=== PATIENT | male | born 1960 | race Caucasian/White ===

== ENCOUNTER 2020-09-29 03:51 | Emergency (ER) | payer OTHER, SELFPAY ==
--- NOTE | ~2020-09-29 | CT_ITS ---
EXAMINATION: CT abdomen pelvis w con DATE: 09/29/2020 06:06 INDICATION: Abdominal pain TECHNIQUE: Computed tomography (CT) of the abdomen and pelvis was performed with 100 mL Omnipaque-350 intravenous contrast. Automated exposure control and iterative reconstruction technique were employe d. The dose-length product was 1272.32 mGy-cm. COMPARISON: None FINDINGS: Mild atelectasis in the bilateral lower lobes. Heart size is normal. No pericardial or pleural effusi on. There are 3 hepatic cysts the largest measuring 3.4 cm in the right hepatic lobe. Gallbladder, sp keven, pancreas, bilateral adrenal glands and kidneys are normal. Ventral hernia along the left anteri or pelvic wall which is superimposed over ventral diastases. Several loops of small bowel as well as a segment of colon extending to the hernia. No bowel obstruction. There is wall thickening along coup le loops of small bowel in the left abdomen cephalad to the orifice of the ventral hernia consistent with an enteritis which could be infectious or inflammatory in etiology. Normal appendix. Fluid diste nded bladder is otherwise unremarkable. Minimal ascites in the dependent aspect of the hernia sac. No abscess or free intraperitoneal gas. Small fat-containing left inguinal hernia. Intramuscular lipoma along the left abductor musculature. Mildly bilateral inguinal lymph nodes extending cephalad along the bilateral iliac chains and into the abdominal retroperitoneum predominantly along the right para- aortic chain. Chronic anterior wedging at T11 and T12. Moderate to severe lower lumbar spondylosis. IMPRESSION: 1. Wall thickening along a few loops of small bowel which could be infectious or inflammatory in etio logy. 2. Separate loops of nonobstructed small bowel and short segment of colon extend into a left pelvic v entral hernia. 3. Mild bilateral inguinal, pelvic and retroperitoneal lymphadenopathy which most likely reactive pot entially related to suspected osteomyelitis at the bilateral feet.. Differential would include less l ikely lymphoma or metastatic disease. Reviewed, dictated and finalized at location A. SPRAYER IMPRESSION: 1. Wall thickening along a few loops of small bowel which could be infectious o r inflammatory in etiology. 2. Separate loops of nonobstructed small bowel and short segment of colon exten d into a left pelvic ventral hernia. 3. Mild bilateral inguinal, pelvic and retroperitoneal lymphadenopathy which mo st likely reactive potentially related to suspected osteomyelitis at the bilate ral feet.. Differential would include less likely lymphoma or metastatic diseas e.
--- NOTE | ~2020-09-29 | XR_ITS ---
EXAMINATION: XR ankle LT min 3V DATE: 09/29/2020 10:08 INDICATION: Possible ankle fracture. TECHNIQUE: Anteroposterior, oblique, mortise, and lateral views of the left ankle were obtained. COMPARISON: Left foot radiographs dated 09/29/2020 FINDINGS: Again seen is an oblique linear lucency projecting across the metadiaphyseal region of the left fibul a on the lateral projection which remain suspicious for nondisplaced fracture. No other fractures mickey ntified. Ankle mortise remains congruent with mild osteoarthritis. Again seen is soft tissue gas proj ecting over the medial malleolus likely related to reported history of open wound to some overlying b andaging material evident. Destructive changes at several of the metatarsophalangeal joints as previo usly detailed. IMPRESSION: 1. Persistent linear lucency projecting across the distal metadiaphyseal region of the left fibula wh ich remain suspicious for nondisplaced fracture. 2. Destructive change at several of the metatarsophalangeal joints concerning for osteomyelitis at le ast at the second metatarsophalangeal joint. See separate left foot radiograph report for further det ail. Reviewed, dictated and finalized at location A. OR NETWORK ENGINEER IMPRESSION: 1. Persistent linear lucency projecting across the distal metadiaphyseal region of the left fibula which remain suspicious for nondisplaced fracture. 2. Destructive change at several of the metatarsophalangeal joints concerning f or osteomyelitis at least at the second metatarsophalangeal joint. See separate left foot radiograph report for further detail.
--- NOTE | ~2020-09-29 | XR_ITS ---
EXAMINATION: XR foot RT 2V DATE: 09/29/2020 04:45 INDICATION: Right foot pain, swelling and open draining wound. TECHNIQUE: Dorsoplantar and lateral views of the right foot were obtained. COMPARISON: None. FINDINGS: Joint centered osteolysis at the fourth metatarsophalangeal joint involving the base of the fourth pr oximal phalanx and head of the fourth metatarsal concerning for septic arthritis and osteomyelitis. T here is also some osteolysis at the base of the fifth proximal phalanx and head of the fifth metatars al but also with periosteal reaction which is fairly exuberant at the diaphysis of the fifth metatars al consistent with chronic osteomyelitis. More chronic appearing destructive change at the head of th e third metatarsal and base of the third proximal phalanx which could represent additional chronic os teomyelitis or prior osteotomies. No fracture. Mild polyarticular osteoarthritis throughout the right foot. Prominent soft tissue swelling over the dorsal and lateral aspects of the right forefoot with suggestion of some possible associated soft tissue gas likely related to reported draining open wound . IMPRESSION: 1. Osteomyelitis likely acute on chronic centered at the fourth and fifth metatarsophalangeal joints. Reviewed, dictated and finalized at location A. [employer] IMPRESSION: 1. Osteomyelitis likely acute on chronic centered at the fourth and fifth metat arsophalangeal joints.
--- NOTE | ~2020-09-29 | XR_ITS ---
EXAMINATION: XR chest 1V DATE: 09/29/2020 04:45 INDICATION: Sepsis TECHNIQUE: frontal view of the chest was obtained. COMPARISON: None FINDINGS: The lungs are clear with no focal airspace opacities, pulmonary edema, pleural effusion or pneumothor ax. The cardiomediastinal silhouette is normal. Moderate degenerative skeletal changes in the spine a nd at both shoulders. IMPRESSION: 1. No acute cardiopulmonary disease. Reviewed, dictated and finalized at location A. CTOR ADVANCED
--- NOTE | ~2020-09-29 | XR_ITS ---
EXAMINATION: XR foot LT 2V DATE: 09/29/2020 07:15 INDICATION: Left foot pain, swelling and sores TECHNIQUE: Dorsoplantar and lateral views of the left foot were obtained. COMPARISON: None. FINDINGS: Joint centered osteolysis centered at the second metatarsophalangeal joint and involving both the bas e of the second proximal phalanx and head of the second metatarsal consistent with septic arthritis a nd osteomyelitis. More chronic appearing destructive changes centered at the third and fourth metatar sophalangeal joints with smooth margins suggesting chronic osteomyelitis and/or osteotomies. Suggesti ve old healed fracture at the proximal diaphysis of the fourth metatarsal. Mild polyarticular osteoar thritis at the left ankle, mid and forefoot. Linear lucency projecting obliquely across the distal me tadiaphyseal region of the left fibula suspicious for recent fracture. Soft tissue gas in the region of the second and third metatarsophalangeal joints as well as overlying the medial malleolus. IMPRESSION: 1. Septic arthritis at the second metatarsophalangeal joint with osteomyelitis involving the head of the second metatarsal and base of the second proximal phalanx. 2. Focus of soft tissue gas centered about the second and third metatarsophalangeal joints and overly ing the medial malleolus likely related to reported history of multiple open draining wounds. 3. Suggestion of a nondisplaced relatively recent fracture along the distal metadiaphysis of the left fibula. Would recommend dedicated left ankle radiographs for further evaluation. Reviewed, dictated and finalized at location A. THROATER IMPRESSION: 1. Septic arthritis at the second metatarsophalangeal joint with osteomyelitis involving the head of the second metatarsal and base of the second proximal pha lanx. 2. Focus of soft tissue gas centered about the second and third metatarsophalan geal joints and overlying the medial malleolus likely related to reported histo ry of multiple open draining wounds. 3. Suggestion of a nondisplaced relatively recent fracture along the distal met adiaphysis of the left fibula. Would recommend dedicated left ankle radiographs for further evaluation.
[2020-09-29 03:55] VITALS: BP 143/74; PULSE 109; RESP 20; TEMP 36.9; O2SAT 98
--- NOTE | 2020-09-29 04:24 | ECG_ITS ---
Measurements Intervals Herman Rate: 103 P: 77 IA: 165 QRS: 0 QRSD: 97 T: 117 QT: 327 QTc: 428 Interpretive Statements SINUS TACHYCARDIA POSSIBLE LEFT ATRIAL ENLARGEMENT DELAYED PRECORDIAL R/S TRANSITION VOLTAGE CRITERIA FOR LVH BASELINE WANDER- I, II, AVR, AVL,A VF BORDERLINE ECG Electronically Signed On 09-29-2020 8:56:41 [employer] MECH[employer] by Conner Lopez D.O.
--- NOTE | 2020-09-29 04:28 | ED.GENADULT ---
HPI - General Adult General Chief complaint: Extremity Injury, Lower <Colton Head MD - Last Filed: 09/29/20 07:47> Stated complaint: bilateral lower extrem pain and swelling <Colton Head MD - Last Filed: 09/29/20 07:47> Time Seen by Provider: 09/29/20 04:16 <Colton Head MD - Last Filed: 09/29/20 07:47> History of Present Illness HPI narrative: Patient is a 60-year-old gentleman who presents the emergency department with chief complaint of bilateral leg pain. Patient reports that he has had back pain and leg pain for several years and his had decreased mobility to the point that he has been sitting in a chair. The patient states has not seen a doctor in about a year and is really unsure if he has any other medical problems. Patient has noticed that he had had a previous hernia surgery and noticed that there has been an area that started draining in his left lower quadrant and was tender. Patient reports that he also has developed ulcerations on bilateral feet and has significant swelling of his feet the patient noticed that there is multiple ulcerations of the been draining purulent material <Colton Head MD - Last Filed: 09/29/20 07:47> Related Data Home medications: Home Medications Medication Instructions Recorded Confirmed No Home Medications 09/29/20 09/29/20 <Colton Head MD - Last Filed: 09/29/20 07:47> Allergies/adverse reactions: Allergies Allergy/AdvReac Type Severity Reaction Status Date / Time No Known Allergies Allergy Verified 09/29/20 07:29 <Colton Head MD - Last Filed: 09/29/20 07:47> Review of Systems Review of Systems: Narrative: A 10 system review of systems was completed on the patient and is negative except for what is stated in the HPI. Nursing and ancillary documentation was reviewed. <Colton Head MD - Last Filed: 09/29/20 07:47> PMFSH Comments Patient reports past medical history significant for hernia repair in the left lower quadrant Social history the patient lives with his and has been immobilized for some time <Colton Head MD - Last Filed: 09/29/20 07:47> Exam Narrative: Exam Narrative: GENERAL: Well-appearing, well-nourished, and in no acute distress. HEAD: Normocephalic, atraumatic. EYES: PERRLA and EOMI. ENT: Nares clear, no rhinorrhea or epistaxis. Mucous membranes moist. NECK: Supple. CHEST: Clear to auscultation. No respiratory distress. HEART: Regular rate and rhythm. No murmur heard. Normal peripheral pulses. ABDOMEN: Soft, there is tenderness to palpation throughout the abdomen there is a ulceration that is draining brown material in the left lower quadrant as well as a soft tissue swelling in the left lower quadrant., nondistended, normal active bowel sounds. EXTREMITIES: Normal range of motion. There is edema to bilateral lower extremities there is erythema below the knee there are multiple ulcerations that are draining purulent material. SKIN: Warm, dry, no rash. NEURO: No focal deficits. Alert and oriented x3. PSYCH: Normal mood and affect. <Colton Head MD - Last Filed: 09/29/20 07:47> Course Course Emergency Course: The patient has been fluid resuscitated with normal saline patient was started on empiric antibiotic coverage with vancomycin and Zosy plain film x-rays of the bilateral feet are concerning for osteomyelitis. The patient has a white blood cell count of 30,000 lactate was only 2.[address] scan of the abdomen pelvis shows evidence of a large ventral hernia that did contain several loops of small bowel there is no evidence of small bowel obstruction in the left pelvis area there is an area of inflammation in the bowel there is no free fluid or pneumoperitoneum <Colton Head MD - Last Filed: 09/29/20 07:47> Vital Signs Vital signs: Vital Signs Temperature 36.
[2020-09-29] MEDS: SODIUM CHLORIDE 0.9% IV 3,300 ML/1,000 ML BAG 999 ML IV CONT ×2 (04:59→09:18)
[2020-09-29 05:16] LABS: Hematocrit 38.2 % (42.0-52.0); Hemoglobin 12.6 g/dL (14.0-18.0); Mean Corpuscular Volume 84.9 fl (80-100); Mean Platelet Volume 10.6 fl (7.4-10.4); Platelet Count Result 491 k/mm3 (150-375); Red Cell Distribution Width 16.6 % (11.5-14.5); White Blood Count 30.3 K/mm3 (4.5-10.0)
[2020-09-29 05:28] LABS: INR 1.2; Partial Thromboplastin Time 34.2 SECONDS (22.3-36.8); Prothrombin Time 15.6 Seconds (11.1-14.7)
[2020-09-29 05:41] LABS: Troponin I < 0.012 ng/mL (0.000-0.034)
[2020-09-29 05:45] LABS: Band Neutrophils Percent 16 % (0-6); Lymphocytes Absolute Manual 1.81 K/mm3 (1.1-4.5); Monocytes Percent Manual 1 % (3-9); Neutrophils Absolute Manual 28.17 K/mm3 (1.3-6.7); Neutrophils Percent Manual 77 % (46-73); Platelet Estimate Adequate (Adequate); Target Cells 1+ (NORMAL); Total Cells Counted 100
[2020-09-29 05:53] LABS: Alanine Aminotransferase 36 U/L (4-50); Albumin Level 3.1 g/dL (3.5-5.1); Alkaline Phosphatase 262 U/L (38-126); Anion Gap 20 mmol/L (8-16); Aspartate Amino Transferase 49 U/L (17-59); Bilirubin,Total 0.9 mg/dL (0.2-1.3); Blood Urea Nitrogen 25 mg/dL (9-20); Calcium 9.2 mg/dL (8.4-10.2); Carbon Dioxide 19 mmol/L (22-30); Chloride 88 mmol/L (98-107); Estimated CRCL calculation 114 ml/min; Estimated Glomerular Filt Rate > 60; Glucose 447 mg/dL (75-110); Potassium 3.3 mmol/L (3.4-5.0); Sodium 127 mmol/L (137-145)
[2020-09-29 06:18] LABS: CRP > 45.0 mg/dL (<1.0)
[2020-09-29] MEDS: SODIUM CHLORIDE 0.9% IV 1,000 ML 999 ML IV CONT ×2 (06:35→07:28)
[2020-09-29 07:27] VITALS: BP 144/66; PULSE 105; RESP 24; O2SAT 98
[2020-09-29 07:44] LABS: Add Urine Microscopic? YES; Appearance Urine Clear (Clear); Bacteria Urine Trace /hpf; Bilirubin Urine Negative (Negative); Blood Urine 2+ (Negative); Color Urine Yellow (Yellow); Glucose Urine UA 3+ mg/dL (Negative); Hyaline Casts Urine 15-19 /lpf; Ketones Urine 1+ mg/dL (Negative); Leukocyte Esterase Ur Negative LEU/UL (Negative); Mucus Urine Rare /lpf; Nitrate Urine Negative (Negative); Protein Urine 1+ mg/dL (Negative); Specific Grav Ur 1.029 (1.001-1.035); Squamous Epithelial Cell Urine Rare /hpf (Few)
[2020-09-29] MEDS: INSULIN HUMAN REGULAR (*BKC) 100 UNITS/ML 7 UNITS SUB-Q (08:00)
[2020-09-29 08:21] LABS: Alveolar/Arterial O2 Gradient 34.3 mmHg; Base Excess ABG -8.7 mEq/l (+/-2.0); Carboxyhemoglobin 0.7 % THb (0-2.0); Fractional Inspired Oxygen 21 %; HCO3 ABG 14.6 mEq/l (22.0-26.0); Methemoglobin ABG 0.1 %THb (0-1.5); Oxygen Content ABG 16.1 %vol (16.0-22.0); Oxygen Saturation ABG 96.6 % (95.0-100.0); Oxyhemoglobin 95.8 % THb (90.0-100.0); PCO2 ABG 24.8 mmHg (35.0-45.0); PO2 ABG 85.7 mmHg (80.0-100.0); PO2 FiO2 Ratio Arterial Blood 4.08 %; Reduced Hemoglobin 3.4 %THb (0-5.0); Total Hemoglobin 11.9 g/dL (12.0-18.0); pH ABG 7.389 (7.350-7.450)
[2020-09-29 08:22] LABS: Device ROOM AIR; Modified Allen's Test Pass; Site Drawn LEFT RADIAL
[2020-09-29 08:47] LABS: Beta-Hydroxybutyrate/Acetoacetate 6.44 mmol/L (0.02-0.27)
[2020-09-29 08:49] LABS: Glucose Point of Care 386 (65-105)
[2020-09-29 08:54] VITALS: BP 139/73; PULSE 98; RESP 22; O2SAT 98
--- NOTE | 2020-09-29 09:07 | PC.NURSE ---
called Dawna crisostomo, added on Glu, Phos, and Mg 0914
[2020-09-29] MEDS: POTASSIUM CHLORIDE 20 MEQ PACKET (FOR LIQUID) 40 MEQ PO (09:18)
[2020-09-29 09:20] LABS: Magnesium 1.9 mg/dL (1.6-2.3); Phosphorus 4.2 mg/dL (2.5-4.5)
[2020-09-29 09:34] LABS: Erythrocyte Sedimentation Rate 21 mm/hr (0-20)
[2020-09-29 09:38] VITALS: BP 140/68; PULSE 101; RESP 17; O2SAT 100
[2020-09-29 09:58] LABS: Anion Gap 16 mmol/L (8-16); Blood Urea Nitrogen 21 mg/dL (9-20); Calcium 8.5 mg/dL (8.4-10.2); Carbon Dioxide 22 mmol/L (22-30); Chloride 92 mmol/L (98-107); Estimated CRCL calculation 155 ml/min; Estimated Glomerular Filt Rate > 60; Glucose 392 mg/dL (75-110); Potassium 3.3 mmol/L (3.4-5.0); Sodium 130 mmol/L (137-145)
[2020-09-29 10:09] LABS: Glucose Point of Care 340 (65-105)
--- NOTE | 2020-09-29 10:13 | PC.NURSE ---
Called lab, triny, about new BMP and Glu. Removed orders (double ordered?).
[2020-09-29 10:49] VITALS: BP 135/76; PULSE 100; RESP 19; O2SAT 98
== END 2020-09-29 10:51 | disposition short-term general hospital (02) ==
PROVIDERS: Emergency Medicine; Emergency Provider Emergency Medicine; PCP Internal Medicine
DX: L03.116 Cellulitis of left lower limb (principal); L03.115 Cellulitis of right lower limb; R73.9 Hyperglycemia, unspecified; A41.9 Sepsis, unspecified organism; K43.9 Ventral hernia without obstruction or gangrene; R00.0 Tachycardia, unspecified; R94.31 Abnormal electrocardiogram [ECG] [EKG]; M00.9 Pyogenic arthritis, unspecified; R93.6 Abnormal findings on diagnostic imaging of limbs; M86.9 Osteomyelitis, unspecified
CPT/HCPCS: 36415; 36600; 71045; 73610; 73620; 74177; 80048; 80053; 81001; 82010; 82375; 82805; 82948; 83050; 83605; 83735; 84100; 84484; 85025; 85610; 85652; 85730; 86140; 87040; 87147; 87186; 93005; 96361; 96365; 96366; 96367; 99285; A9270; J1815; J2543; J3370; J3480; J7030; Q9967

== ENCOUNTER 2021-10-26 09:57 | Emergency (ER) | payer OTHER, SELFPAY ==
[2021-10-26] VITALS (15 sets, daily range): BP systolic 130–156; BP diastolic 67–92; PULSE 86–94; RESP 16–20; TEMP 36.6; O2SAT 95–98
--- NOTE | ~2021-10-26 | CT_ITS ---
EXAMINATION: CT abdomen pelvis wo con EXAM DATE: 10/26/2021 13:42 INDICATION: dm, ap, diarrhea, inc wbc . TECHNIQUE: Spiral CT of the abdomen and pelvis was performed without contrast. Axial, coronal and s agittal images of the abdomen and pelvis were reviewed. The dose-length product (DLP) for this exami [facility] was 1461.19 mGy-cm. The exposure was tailored according to patient size (auto mA exposure con trol), and iterative reconstruction (ASIR) was used as additional dose reduction technique. Compariso n is made to prior examination from 09/29/2020. FINDINGS: Generalized abdominal wall diastases, dehiscence with large superimposed ventral hernia con taining nonobstructed bowel.. There is a left liver lobe cyst measuring about 3 cm. Spleen, adrenal glands, pancreas are unremarkable. Gallbladder is unremarkable. No biliary obstruction. There is n o nephrolithiasis or hydronephrosis. Prostate within normal size limits. Small bilateral inguinal f at-containing hernias. The bladder is unremarkable. There is no retroperitoneal or pelvic lymphaden opathy. There is mild scattered arteriosclerotic disease. There is distal esophageal wall edema, could be esophagitis but cancer not excludable. The stomach is distended with fluid and gas. There are no findings to suggest appendicitis. No small bowel dilation . Small duodenal diverticulum. There is mild sigmoid colonic diverticulosis. There is no adjacent in flammatory change to suggest diverticulitis. There is expected amount of colonic stool. No free int raperitoneal gas. The heart is normal in size. There are no pericardial or pleural effusions. The lung bases are unremarkable. There are no osteoblastic or osteolytic lesions identified. Intramusc ular 8 cm lipoma in the left thigh upper abdominal. Adductors IMPRESSION: 1. No acute intra-abdominal findings. 2. Distal esophageal wall edema probably esophagitis. Cancer not excludable. Distended stomach. 3. Abdominal wall dehiscence, arch ventral hernia containing nonobstructed bowel. 4. Colonic, duodenal diverticulosis. Reviewed, dictated and finalized at location A. OUND SPECIALIST IMPRESSION: 1. No acute intra-abdominal findings. 2. Distal esophageal wall edema probably esophagitis. Cancer not excludable. D istended stomach. 3. Abdominal wall dehiscence, arch ventral hernia containing nonobstructed bow el. 4. Colonic, duodenal diverticulosis.
[2021-10-26 11:10] LABS: Basophils Percent Auto 0.2 % (0.2-1.2); Hematocrit 47.9 % (42.0-52.0); Immature Granulocyte Absolute 0.18 K/mm3 (0.00-0.031); Immature Granulocyte Percent A 0.9 % (0-0.5); Lymphocytes Absolute Auto 1.03 K/mm3 (0.9-3.2); Lymphocytes Percent Auto 4.9 % (18.3-44.2); Mean Corpuscular HGB Conc 33.4 g/dl (32-36); Mean Corpuscular Hemoglobin 28.7 pg (26-34); Mean Platelet Volume 11.4 fl (7.4-10.4); Monocytes Absolute Auto 0.8 K/mm3 (0.1-0.6); Monocytes Percent Auto 3.9 % (2.6-8.5); Neutrophils Absolute Auto 18.8 K/mm3 (1.3-6.7); Neutrophils Percent Auto 90.1 % (45.5-73.1); Platelet Count Result 291 k/mm3 (150-375); Red Blood Count 5.57 M/mm3 (4.6-6.20); Red Cell Distribution Width 14.1 % (11.5-14.5); White Blood Count 20.8 K/mm3 (4.5-10.0)
[2021-10-26 11:19] LABS: Lipase 26 U/L (23-300)
[2021-10-26] MEDS: LACTATED RINGERS 1,000 ML 999 ML IV CONT ×2 (11:32→13:15)
[2021-10-26] MEDS: ONDANSETRON INJ 4 MG/2 ML VIAL IV PUSH (11:32)
[2021-10-26] MEDS: PANTOPRAZOLE SODIUM IV 40 MG VIAL IV PUSH (11:32)
[2021-10-26 11:41] LABS: Troponin I 0.027 ng/mL (0.000-0.034)
[2021-10-26 12:38] LABS: Alanine Aminotransferase 37 U/L (4-50); Albumin Level 4.3 g/dL (3.5-5.1); Alkaline Phosphatase 93 U/L (38-126); Anion Gap 16 mmol/L (8-16); Aspartate Amino Transferase 51 U/L (17-59); Bilirubin,Total 1.2 mg/dL (0.2-1.3); Blood Urea Nitrogen 46 mg/dL (9-20); Calcium 9.1 mg/dL (8.4-10.2); Carbon Dioxide 29 mmol/L (22-30); Chloride 90 mmol/L (98-107); Estimated CRCL calculation 85 ml/min; Estimated Glomerular Filt Rate > 60; Glucose 356 mg/dL (65-110); Potassium 3.5 mmol/L (3.4-5.0); Sodium 135 mmol/L (137-145)
[2021-10-26 13:01] LABS: Add Urine Microscopic? YES; Appearance Urine Clear (Clear); Bilirubin Urine Negative (Negative); Blood Urine Negative (Negative); Color Urine Amber (Yellow); Glucose Urine UA 2+ mg/dL (Negative); Hyaline Casts Urine 15-19 /lpf; Ketones Urine Trace mg/dL (Negative); Leukocyte Esterase Ur Negative LEU/UL (Negative); Mucus Urine Few /lpf; Nitrate Urine Negative (Negative); Protein Urine 2+ mg/dL (Negative); Specific Grav Ur 1.023 (1.001-1.035); Squamous Epithelial Cell Urine Rare /hpf (Few); WBC Urine 0-3 /hpf
[2021-10-26] MEDS: INSULIN HUMAN REGULAR (*BKC) 100 UNITS/ML 10 UNITS IV PUSH (13:15)
[2021-10-26 13:38] LABS: Toxigenic C. Diff POSITIVE (NEGATIVE)
--- NOTE | 2021-10-26 14:29 | ED.NAVMDI ---
HPI - Nausea/Vomiting/Diarrhea General Chief complaint: Nausea/Vomiting/Diarrhea Stated complaint: Coughing up blood/nausea Time Seen by Provider: 10/26/21 10:16 Source: patient Mode of arrival: EMS Limitations: clinical condition History of Present Illness HPI Narrative: 61-year-old male Patient is brought in by EMS from his home where he was said to have been found naked in his living room in a hospital bed and was transported in that condition Patient states that he has been having abdominal discomfort and feeling bloated for weeks For the last 2 days he has had very minimal if any p.o. intake and has not been taking his insulin for that reason He also complains that he has vomited a few times in the last 1 may have had blood in it As well as having loose stools multiple times in the last 2 days He has a old ventral hernia repair which is failed and is concerned whether that is the cause of some of the symptoms Related Data Home Medications Medication Instructions Recorded Confirmed insulin aspar prot-insulin aspart 7 unit SUBCUT TID ml 11/29/20 12/02/20 100 unit/mL (70-30) subcutaneous pen lisinopril 10 mg tablet 10 mg PO DAILY 11/29/20 12/02/20 insulin glargine 100 unit/mL (3 30 unit SUBCUT QPM ml 12/02/20 12/02/20 mL) subcutaneous pen blood sugar diagnostic #10 ea 12/16/20 blood-glucose meter #1 ea 12/16/20 Allergies Allergy/AdvReac Type Severity Reaction Status Date / Time No Known Allergies Allergy Verified 12/02/20 13:42 Review of Systems Review of Systems: All systems reviewed & are unremarkable except as noted in HPI and below Constitutional: Constitutional: Reports no additional constitutional complaints, Denies chills, Reports fatigue, Denies fever(s), Denies headache(s) and Reports weakness Eyes: Eyes: Reports no additional eye complaints and Denies change in vision ENT: Denies headache(s) and Denies sore throat Cardiovascular: Cardiovascular: Denies chest pain and Denies dyspnea Respiratory: Respiratory: Denies cough and Denies dyspnea Gastrointestinal: Gastrointestinal: Reports abdominal pain, Reports bloating, Reports heartburn, Reports diarrhea, Reports nausea and Reports vomiting Genitourinary: Genitourinary: Denies dysuria, Denies urinary frequency and Denies urinary incontinence Musculoskeletal: Musculoskeletal: Reports myalgias, Denies deformity, Denies arthralgias, Denies joint swelling and Denies numbness Integumentary/Breasts: Skin/Breast: Denies rash and Denies wounds Neurologic: Denies headache(s), Denies focal weakness and Denies numbness Psychiatric: Psychiatric: Reports no additional psychiatric complaints Endocrine: Endocrine: Reports no additional endocrine complaints Hematologic/Lymphatic: Hematologic/Lymphatic: Reports no additional hematologic/lymphatic complaints Allergic/Immunologic: Allergic/Immunologic: Reports no additional allergic/immunologic complaints [facility] Social History Social History Smoking status: Former smoker Second hand tobacco smoke exposure: No Alcohol intake: never Substance use: never Agree to blood products: Yes Exam Const: General: cooperative, no acute distress and alert; No confusion Nutritional Appearance: obese Orientation/consciousness: patient oriented x3 (alert) HENMT: Head: normal to inspection, normocephalic and atraumatic Ears: external ears normal General nose exam: no epistaxis Mouth: Yes moist mucous membranes Eyes: Conjunctivae: conjunctivae normal EOM: EOMs intact bilaterally Neck: Neck: normal visual inspection, supple and no JVD Resp: Effort & Inspection: normal respiratory effort and not labored Auscultation: clear to auscultation bilaterally and other (BS =) Cardio: Rate: regular rate Rhythm: regular rhythm Heart sounds: no murmurs GI: GI Palp: Yes Soft to palpation, No Tenderness to palpation present (GI), No Guarding due to p
--- NOTE | 2021-11-11 18:20 | PC.NURSE ---
LATE ENTRY This note is being entered to document information to the patient's record. The following information was omitted on [10/26/21], by [eleonora lawson]. LR START 1132- END 1225 LrR START 1315- END 1409
== END 2021-10-26 16:06 | disposition left against medical advice (07) ==
PROVIDERS: Emergency Provider Emergency Medicine; PCP Physician Assistant
DX: R19.7 Diarrhea, unspecified (principal); E10.65 Type 1 diabetes mellitus with hyperglycemia; T38.3X6A Underdosing of insulin and oral hypoglycemic [antidiabetic] drugs, initial encounter; Z91.128 Patient's intentional underdosing of medication regimen for other reason; Z87.891 Personal history of nicotine dependence; K57.30 Diverticulosis of large intestine without perforation or abscess without bleeding; R93.3 Abnormal findings on diagnostic imaging of other parts of digestive tract; R93.5 Abnormal findings on diagnostic imaging of other abdominal regions, including retroperitoneum; K43.9 Ventral hernia without obstruction or gangrene
CPT/HCPCS: 36415; 74176; 80053; 81001; 83690; 84443; 84484; 85025; 87493; 96361; 96374; 96375; 99284; C9113; J1815; J2405; J7120

== ENCOUNTER 2023-06-05 10:35 | Outpatient (CLI) | payer OTHER, SELFPAY ==
[2023-06-05 17:52] LABS: Basophils Absolute Auto 0.1 K/mm3 (0.0-0.1); Eosinophils Absolute Auto 0.5 K/mm3 (0-0.3); Eosinophils Percent Auto 3.3 % (0-4.4); Hematocrit 48.8 % (42.0-52.0); Immature Granulocyte Absolute 0.06 K/mm3 (0.00-0.031); Immature Granulocyte Percent A 0.4 % (0-0.5); Lymphocytes Absolute Auto 1.89 K/mm3 (0.9-3.2); Lymphocytes Percent Auto 13.4 % (18.3-44.2); Mean Corpuscular HGB Conc 32.8 g/dl (32-36); Mean Corpuscular Hemoglobin 29.3 pg (26-34); Mean Corpuscular Volume 89.4 fl (80-100); Mean Platelet Volume 12.4 fl (7.4-10.4); Monocytes Absolute Auto 0.9 K/mm3 (0.1-0.6); Neutrophils Absolute Auto 10.8 K/mm3 (1.3-6.7); Neutrophils Percent Auto 75.9 % (45.5-73.1); Platelet Count Result 278 k/mm3 (150-375); Red Blood Count 5.46 M/mm3 (4.6-6.20); Red Cell Distribution Width 14.1 % (11.5-14.5); White Blood Count 14.2 K/mm3 (4.5-10.0)
[2023-06-05 19:42] LABS: Alanine Aminotransferase 16 U/L (6-50); Alkaline Phosphatase 83 U/L (38-126); Anion Gap 9 mmol/L (8-16); Aspartate Amino Transferase 25 U/L (17-59); Bilirubin,Total 0.5 mg/dL (0.2-1.3); Blood Urea Nitrogen 12 mg/dL (9-20); Carbon Dioxide 29 mmol/L (22-30); Chloride 97 mmol/L (98-107); Cholesterol 159 mg/dL (0-200); Estimated Glomerular Filt Rate > 60; Glucose 271 mg/dL (65-110); HDL Direct 34 mg/dL; Potassium 3.6 mmol/L (3.4-5.0); Sodium 135 mmol/L (137-145); Triglycerides 200 mg/dL (<150)
[2023-06-05 19:53] LABS: LDL Cholesterol Direct 63 mg/dL
[2023-06-05 20:13] LABS: Prostate Specific Antigen 0.1 ng/mL (< OR = 4.0)
[2023-06-05 20:23] LABS: Vitamin D 25 Hydroxy < 12.8 ng/mL
[2023-06-05 21:35] LABS: Hemoglobin A1C 11.4 % (<5.7)
== END 2023-06-05 10:36 | disposition home or self-care (01) ==
PROVIDERS: PCP Family Medicine; Visit Provider Family Medicine
DX: Z12.5 Encounter for screening for malignant neoplasm of prostate (principal); Z00.00 Encounter for general adult medical examination without abnormal findings; E11.9 Type 2 diabetes mellitus without complications; I10 Essential (primary) hypertension; E78.5 Hyperlipidemia, unspecified; E55.9 Vitamin D deficiency, unspecified; E53.8 Deficiency of other specified B group vitamins; Z79.899 Other long term (current) drug therapy
CPT/HCPCS: 36415; 80053; 80061; 82306; 82607; 83036; 84153; 84443; 85025; G0103

== ENCOUNTER 2024-07-04 09:59 | Inpatient (IN) | payer OTHER, SELFPAY ==
[2024-07-04] VITALS (8 sets, daily range): BP systolic 147–208; BP diastolic 84–105; PULSE 68–83; RESP 17–26; TEMP 36.2–36.7; O2SAT 92–96; BMI 33.2
--- NOTE | ~2024-07-04 | CT_ITS ---
EXAMINATION: CT abdomen pelvis w con DATE: 07/04/2024 11:49 INDICATION: Left lower quadrant hernia. TECHNIQUE: Computed tomography (CT) of the abdomen and pelvis was performed with 100 mL Omnipaque-350 intravenous contrast. Automated exposure control and iterative reconstruction technique were employe d. The dose-length product was 1454.67 mGy-cm. COMPARISON: None FINDINGS: There are incompletely visualized bilateral posterior layering pleural effusions with compressive ate lectasis in the bilateral lower lobes. Cardiomegaly. Atherosclerotic coronary artery calcification. N o pericardial effusion. A few scattered hepatic cysts the largest measuring 2.8 cm at the caudal righ t hepatic lobe. Decompressed gallbladder, spleen, pancreas, bilateral adrenal glands and kidneys are normal. Bladder is normal. Again seen is marked diastases of the rectus abdominis muscle from which arises a large left lower qu adrant ventral hernia containing multiple loops of small bowel. There are a couple additional small s atellite hernias arising at the anterior and posterior inferior margin of the larger hernia, the form er containing a portion of the wall of a loop of small bowel and the latter containing fat and a mini mal amount of fluid. No bowel obstruction. There is focal wall thickening at the cecum along with sev eral small lymph nodes in the immediately adjacent fat. There is a larger 2.2 cm spherical mass near the tip of the cecum. Findings are suspicious for a primary cecal colon cancer and associated metasta tic disease. There is mild more diffuse wall thickening in the distal sigmoid colon and rectum which is more suspicious for a mild distal proctocolitis. There is diffuse body wall edema as well as retroperitoneal edema in the pelvis. No abscess or free i ntraperitoneal gas or fluid. No no other pathologically enlarged abdominal or pelvic lymphadenopathy. Moderate thoracolumbar spondylosis. Small fat-containing left inguinal hernia. Again seen is a large lipoma measuring up to 9.7 cm axial length in the proximal left abductor compartment. IMPRESSION: 1. Chronic marked rectus abdominis diastases with large left lower quadrant ventral hernia containing nonobstructed loops of small bowel. 2. Focal wall thickening at the tip the cecum with 2.2 cm mass and a few smaller nodules in the immed iately adjacent fat which is suspicious for primary colon cancer and ileocolic lymph node metastatic disease. Would recommend attempted colonoscopy for further evaluation although this may prove challen ging given the anatomy of the colon. 3. More diffuse mild wall thickening at the rectum and distal sigmoid colon is more suspicious for a distal proctocolitis which could be infectious, inflammatory or less likely ischemic in etiology. 4. Incompletely visualized bilateral pleural effusions. 5. Cardiomegaly. 6. Small fat-containing left inguinal hernia. Reviewed, dictated and finalized at location A. IMPRESSION: 1. Chronic marked rectus abdominis diastases with large left lower quadrant saul tral hernia containing nonobstructed loops of small bowel. 2. Focal wall thickening at the tip the cecum with 2.2 cm mass and a few smalle r nodules in the immediately adjacent fat which is suspicious for primary colon cancer and ileocolic lymph node metastatic disease. Would recommend attempted colonoscopy for further evaluation although this may prove challenging given th e anatomy of the colon. 3. More diffuse mild wall thickening at the rectum and distal sigmoid colon is more suspicious for a distal proctocolitis which could be infectious, inflammat ory or less likely ischemic in etiology. 4. Incompletely visualized bilateral pleural effusions. 5. Cardiomegaly. 6. Small fat-containing left inguinal hernia.
--- NOTE | 2024-07-04 10:48 | ED_ITS ---
HPI - Skin/Abscess/Foreign Bdy General Chief complaint: Skin/Abscess/Foreign Body <Augusta Dumont PA-C - Last Filed: 07/04/24 14:15> Stated complaint: ulcers to bottom <Augusta Dumont PA-C - Last Filed: 07/04/24 14:15> Time Seen by Provider: 07/04/24 10:21 <Augusta Dumont PA-C - Last Filed: 07/04/24 14:15> History of Present Illness HPI narrative: 64-year-old male history of type 2 diabetes, left leg amputation, hypertension, dyslipidemia presents with his at bedside via EMS from home for ulcers his sacrum for a couple of weeks. The patient's assists with history and states the ulcers began draining yellow purulence today which is why they came to the ED. the patient is bed at home and stays in a hospital bed. He has a chronic right lower extremity contracture. the patient also has a chronic left lower quadrant ventral hernia which is tender to palpation. States he had some diarrhea few days ago but that has since resolved. LBM was yesterday with diarrhea. No diarrhea today. Denies nausea vomiting, fever, Obstipation. <Augusta Dumont PA-C - Last Filed: 07/04/24 14:15> Related Data Allergies/Adverse reactions: Allergies Allergy/AdvReac Type Severity Reaction Status Date / Time No Known Allergies Allergy Verified 06/05/23 09:27 <Augusta Dumont PA-C - Last Filed: 07/04/24 14:15> Review of Systems Review of Systems: All systems reviewed & are unremarkable except as noted in HPI and below <Augusta Dumont PA-C - Last Filed: 07/04/24 14:15> PMF Past Medical History Medical History: Medical History Chronic low back pain Diabetes Flexion contracture of right knee Hernia of abdominal wall Osteomyelitis (~08/2020) Type 2 diabetes mellitus without complications <Augusta Dumont PA-C - Last Filed: 07/04/24 14:15> Surgical History Surgical History: Surgical History History of left above knee amputation (~09/2020) due to osteomyelitis History of tonsillectomy (~1961) History of umbilical hernia repair (~2001) Status post amputation of right foot through metatarsal bone (~09/2020) <Augusta Dumont PA-C - Last Filed: 07/04/24 14:15> Social History Social History: Social History Smoking status: Never smoker Second hand tobacco smoke exposure: No Alcohol intake: never Substance use: never Do You Feel Safe in your Home?: Yes Lack of Transportation: No Lack of Food: Never True Current Housing: I Have Housing Concerned About Future Housing: No Difficulty Paying Gas/Electric Bills: No Difficulty Paying for Meds: No Currently Unemployed: No Education: High School Diploma/GED Difficulty w/ Childcare or Family Care: No Living arrangements: with family Occupation/Education: retired Gender identity (if verbalized by the patient): Male Spiritual care concerns: No Agree to blood products: Yes <Augusta Dumont PA-C - Last Filed: 07/04/24 14:15> Exam Narrative: GENERAL: no acute distress. Poor hygiene HEAD: Normocephalic, atraumatic. EYES: PERRLA and EOMI. ENT: Nares clear, no rhinorrhea or epistaxis. Mucous membranes moist. NECK: Supple. CHEST: Clear to auscultation. No respiratory distress. HEART: Regular rate and rhythm. No murmur heard. Normal peripheral pulses. ABDOMEN: normoactive bowel sounds. Abdomen soft with mild tenderness over the left lower quadrant ventral hernia. Hernia not easily reduced. No overlying skin changes EXTREMITIES: left proximal thigh amputation, right knee chronic contracture SKIN: several stage II ulcerations to the sacrum extending near the scrotum with surrounding blanching erythema and warmth that extends superiorly up the back. No crepitus, no necrosis. Yellow purulence noted on bandages NEURO: No focal deficits. Alert and oriented x3 <Augusta Dumont PA-C - Last Filed: 07/04/24 14:15> Course MARKETING OPERATIONS SPECIALIST/PA Physician Supervision I agree with midlevel documentation; I performed the medical decision making component of this evaluation. <Radha Jj MD - Last Filed: 07/04/24 18:48> Vital Signs Vital signs: Vital Signs Temperature 97.5 F L 07/04/24 10:00 Pulse Rate 79 07/04/24 10:00 Respiratory Rate 20 07/04/24 10:00 Pulse Oximetry 96 07/04/24 10:00 Oxygen Delivery Room Air 07/04/24 10:00 Temperature 97.1 F L 07/04/24 16:00 Pulse Rate 68 07/04/24 16:00 Respiratory Rate 20 07/04/24 16:00 Blood Pressure 181/100 H 07/04/24 16:00 Pulse Oximetry 96 07/04/24 16:00 Oxygen Delivery Room Air 07/04/24 10:00 <Augusta Dumont PA-C - Last Filed: 07/04/24 14:15> Vital Signs Temperature 97.5 F L 07/04/24 10:00 Pulse Rate 79 07/04/24 10:00 Respiratory Rate 20 07/04/24 10:00 Pulse Oximetry 96 07/04/24 10:00 Oxygen Delivery Room Air 07/04/24 10:00 Temperature 97.1 F L 07/04/24 16:00 Pulse Rate 68 07/04/24 16:00 Respiratory Rate 20 07/04/24 16:00 Blood Pressure 181/100 H 07/04/24 16:00 Pulse Oximetry 96 07/04/24 16:00 Oxygen Delivery Room Air 07/04/24 10:00 <Radha Jj MD - Last Filed: 07/04/24 18:48> MDM - Skin/Abscess/Foreign Bdy MDM Narrative Medical decision making narrative: 64-year-old male history of diabetes, hypertension, dyslipidemia presents to the emergency department via EMS for ulcerations to his back. See HPI for further history. Triage vitals. Exam is significant for the above. Will obtain lab work, inflammatory markers, lactic and blood cultures. Given incarcerated left ventral hernia, CT abdomen pelvis will be obtained as well. CBC with leukocytosis of 11.1. Hemoglobin is 10.3 which is decreased approximately 6 point since May 2023. Chemistries reveal mild hypokalemia of 3.3 and hypocalcemia of 7.7. Potassium orally repleted. CRP is elevated to 3.6 and ESR is that is 78. Lactic normal 1.5. Mag is normal. Blood cultures are pending. CT Abdomen pelvis revealed IMPRESSION: 1. Chronic marked rectus abdominis diastases with large left lower quadrant ventral hernia containing nonobstructed loops of small bowel. 2. Focal wall thickening at the tip the cecum with 2.2 cm mass and a few smaller nodules in the immediately adjacent fat which is suspicious for primary colon cancer and ileocolic lymph node metastatic disease. Would recommend attempted colonoscopy for further evaluation although this may prove challenging given the anatomy of the colon. 3. More diffuse mild wall thickening at the rectum and distal sigmoid colon is more suspicious for a distal proctocolitis which could be infectious, inflammatory or less likely ischemic in etiology. 4. Incompletely visualized bilateral pleural effusions. 5. Cardiomegaly. 6. Small fat-containing left inguinal hernia. rectal exam performed which shows no evidence of melena or hematochezia. Hemoccult is positive. Patient has no personal or family history of colon cancer to his knowledge. Family is requesting to stay in this hospital even though we are do not currently have Oncology. They understand that they will need to follow-up on an outpatient basis after discharge. I discussed the case with GI physician, Dr. Raymundo, who agrees to consult on admission with plans for a colonoscopy and biopsy. Discussed with the hospitalist, and Selam Quinones who agrees the plan for admission. Patient was started on vancomycin for cellulitis and infected ulcers. Admitted to the floor in stable condition. <Augusta Dumont PA-C - Last Filed: 07/04/24 14:15> Lab Data Result diagrams: 07/04/24 14:36 07/04/24 10:52 <Augusta Dumont PA-C - Last Filed: 07/04/24 14:15> Labs: Lab Results 07/04/24 Range/Units 10:52 WBC 11.1 H (4.5-10.0) K/mm3 RBC 4.11 L (4.6-6.20) M/mm3 Hgb 10.3 L D (14.0-18.0) g/dL Hct 32.6 L (42.0-52.0) % MCV 79.3 L (80-100) fl MCH 25.1 L (26-34) pg MCHC 31.6 L (32-36) g/dl RDW 18.6 H (11.5-14.5) % Plt Count 460 H D (150-375) k/mm3 MPV 11.4 H (7.4-10.4) fl Immature Gran % (Auto) 0.4 (0-0.5) % Neut % (Auto) 73.9 H (45.5-73.1) % Lymph % (Auto) 12.5 L (18.3-44.2) % [place] % (Auto) 7.7 (2.6-8.5) % Eos % (Auto) 4.1 (0-4.4) % Baso % (Auto) 1.4 H (0.2-1.2) % Lymph # (Auto) 1.39 (0.9-3.2) K/mm3 [place] # (Auto) 0.9 H (0.1-0.6) K/mm3 Eos # (Auto) 0.5 H (0-0.3) K/mm3 Baso # (Auto) 0.2 H (0.0-0.1) K/mm3 Abs Immat Gran (auto) 0.04 H (0.00-0.031) K/mm3 Absolute Neuts (auto) 8.2 H (1.3-6.7) K/mm3 Absolute Nucleated RBC 0.000 (0.0-0.012) K/mm3 Nucleated RBC % 0.0 (0.0-0.2) % ESR 78 H (0-20) mm/hr Sodium 137 (137-145) mmol/L Potassium 3.3 L (3.4-5.0) mmol/L Chloride 100 (98-107) mmol/L Carbon Dioxide 31 H (22-30) mmol/L Anion Gap 6 (4-12) mmol/L BUN 13 (9-20) mg/dL Creatinine 0.70 (0.7-1.3) mg/dL Estim Creat Clear Calc 105 ml/min Estimated GFR > 60 (59 - ) Glucose 125 H (65-110) mg/dL Lactic Acid 1.5 (0.7-2.0) mmol/L Calcium 7.7 L (8.4-10.2) mg/dL Magnesium 1.8 (1.6-2.3) mg/dL Total Bilirubin 0.5 (0.2-1.3) mg/dL AST 18 (17-59) U/L ALT 8 (6-50) U/L Alkaline Phosphatase 97 (38-126) U/L C-Reactive Protein 3.6 H (<1.0) mg/dL Total Protein 7.0 (6.3-8.2) g/dL Albumin 3.1 L (3.5-5.1) g/dL <Augusta Dumont PA-C - Last Filed: 07/04/24 14:15> Lab Results 07/04/24 Range/Units 10:52 WBC 11.1 H (4.5-10.0) K/mm3 RBC 4.11 L (4.6-6.20) M/mm3 Hgb 10.3 L D (14.0-18.0) g/dL Hct 32.6 L (42.0-52.0) % MCV 79.3 L (80-100) fl MCH 25.1 L (26-34) pg MCHC 31.6 L (32-36) g/dl RDW 18.6 H (11.5-14.5) % Plt Count 460 H D (150-375) k/mm3 MPV 11.4 H (7.4-10.4) fl Immature Gran % (Auto) 0.4 (0-0.5) % Neut % (Auto) 73.9 H (45.5-73.1) % Lymph % (Auto) 12.5 L (18.3-44.2) % [place] % (Auto) 7.7 (2.6-8.5) % Eos % (Auto) 4.1 (0-4.4) % Baso % (Auto) 1.4 H (0.2-1.2) % Lymph # (Auto) 1.39 (0.9-3.2) K/mm3 [place] # (Auto) 0.9 H (0.1-0.6) K/mm3 Eos # (Auto) 0.5 H (0-0.3) K/mm3 Baso # (Auto) 0.2 H (0.0-0.1) K/mm3 Abs Immat Gran (auto) 0.04 H (0.00-0.031) K/mm3 Absolute Neuts (auto) 8.2 H (1.3-6.7) K/mm3 Absolute Nucleated RBC 0.000 (0.0-0.012) K/mm3 Nucleated RBC % 0.0 (0.0-0.2) % ESR 78 H (0-20) mm/hr Sodium 137 (137-145) mmol/L Potassium 3.3 L (3.4-5.0) mmol/L Chloride 100 (98-107) mmol/L Carbon Dioxide 31 H (22-30) mmol/L Anion Gap 6 (4-12) mmol/L BUN 13 (9-20) mg/dL Creatinine 0.70 (0.7-1.3) mg/dL Estim Creat Clear Calc 105 ml/min Estimated GFR > 60 (59 - ) Glucose 125 H (65-110) mg/dL Lactic Acid 1.5 (0.7-2.0) mmol/L Calcium 7.7 L (8.4-10.2) mg/dL Magnesium 1.8 (1.6-2.3) mg/dL Total Bilirubin 0.5 (0.2-1.3) mg/dL AST 18 (17-59) U/L ALT 8 (6-50) U/L Alkaline Phosphatase 97 (38-126) U/L C-Reactive Protein 3.6 H (<1.0) mg/dL Total Protein 7.0 (6.3-8.2) g/dL Albumin 3.1 L (3.5-5.1) g/dL <Radha Jj MD - Last Filed: 07/04/24 18:48> Discharge Plan Discharge Clinical Impression: Decubitus ulcer of sacral region, stage 2, Lower GI bleed, Mass of colon Cellulitis Qualifiers: Site of cellulitis: buttock Qualified Code(s): L03.317 - Cellulitis of buttock Ventral hernia Qualifiers: Obstruction and gangrene presence: without obstruction or gangrene Qualified Code(s): K43.9 - Ventral hernia without obstruction or gangrene <Augusta Dumont PA-C - Last Filed: 07/04/24 14:15> Patient Disposition: Still a Patient <Augusta Dumont PA-C - Last Filed: 07/04/24 14:15> Condition: Stable <Augusta Dumont PA-C - Last Filed: 07/04/24 14:15>
[2024-07-04 11:01] LABS: Basophils Absolute Auto 0.2 K/mm3 (0.0-0.1); Basophils Percent Auto 1.4 % (0.2-1.2); Eosinophils Absolute Auto 0.5 K/mm3 (0-0.3); Eosinophils Percent Auto 4.1 % (0-4.4); Hematocrit 32.6 % (42.0-52.0); Hemoglobin 10.3 g/dL (14.0-18.0); Immature Granulocyte Absolute 0.04 K/mm3 (0.00-0.031); Immature Granulocyte Percent A 0.4 % (0-0.5); Lymphocytes Absolute Auto 1.39 K/mm3 (0.9-3.2); Lymphocytes Percent Auto 12.5 % (18.3-44.2); Mean Corpuscular HGB Conc 31.6 g/dl (32-36); Mean Corpuscular Hemoglobin 25.1 pg (26-34); Mean Corpuscular Volume 79.3 fl (80-100); Mean Platelet Volume 11.4 fl (7.4-10.4); Monocytes Absolute Auto 0.9 K/mm3 (0.1-0.6); Monocytes Percent Auto 7.7 % (2.6-8.5); Neutrophils Absolute Auto 8.2 K/mm3 (1.3-6.7); Neutrophils Percent Auto 73.9 % (45.5-73.1); Platelet Count Result 460 k/mm3 (150-375); Red Blood Count 4.11 M/mm3 (4.6-6.20); Red Cell Distribution Width 18.6 % (11.5-14.5); White Blood Count 11.1 K/mm3 (4.5-10.0)
[2024-07-04 11:12] LABS: Lactic Acid Reflex 1.5 mmol/L (0.7-2.0)
[2024-07-04 11:14] LABS: Alanine Aminotransferase 8 U/L (6-50); Albumin Level 3.1 g/dL (3.5-5.1); Alkaline Phosphatase 97 U/L (38-126); Anion Gap 6 mmol/L (4-12); Aspartate Amino Transferase 18 U/L (17-59); Bilirubin,Total 0.5 mg/dL (0.2-1.3); Blood Urea Nitrogen 13 mg/dL (9-20); CRP 3.6 mg/dL (<1.0); Calcium 7.7 mg/dL (8.4-10.2); Carbon Dioxide 31 mmol/L (22-30); Chloride 100 mmol/L (98-107); Estimated CRCL calculation 105 ml/min; Estimated Glomerular Filt Rate > 60; Glucose 125 mg/dL (65-110); Potassium 3.3 mmol/L (3.4-5.0); Sodium 137 mmol/L (137-145)
[2024-07-04 11:34] LABS: Erythrocyte Sedimentation Rate 78 mm/hr (0-20)
[2024-07-04] MEDS: VANCOMYCIN 1,250 MG/NS 250 ML 1,250 MG/250 ML BAG 166.67 MG IVPB ×2 (12:32→14:42)
--- NOTE | 2024-07-04 13:10 | PC.NURSE ---
ANGI Dumont performed rectal exam and hemoccult. Lot # [id number]. Expiration date 04-23. Test was positive.
[2024-07-04 13:11] LABS: Magnesium 1.8 mg/dL (1.6-2.3)
[2024-07-04] MEDS: POTASSIUM CHLORIDE 20 MEQ ER TABLET PO (13:38)
[2024-07-04] MEDS: LIDOCAINE HCL 2% GEL UROJET 10 ML PKG MUCOUS MEM (14:19)
[2024-07-04 14:45] LABS: Hematocrit 30.3 % (42.0-52.0); Hemoglobin 9.6 g/dL (14.0-18.0)
[2024-07-04 14:49] LABS: Add Urine Microscopic? YES; Appearance Urine Clear (Clear); Bacteria Urine None Seen /hpf; Bilirubin Urine Negative (Negative); Blood Urine Non-Hemolyzed Trace (Negative); Color Urine Yellow (Yellow); Glucose Urine UA Negative (Negative); Ketones Urine Negative (Negative); Leukocyte Esterase Ur Negative LEU/UL (Negative); Nitrate Urine Negative (Negative); Non Pathogenic Casts 0-2; Protein Urine 2+ mg/dL (Negative); Specific Grav Ur > 1.045 (1.001-1.035); Squamous Epithelial Cell Urine None Seen /hpf (Few); WBC Urine 0-5 /hpf (0-3); pH Urine 5.5 (5.0-9.0)
--- NOTE | 2024-07-04 18:29 | P.HP_ITS ---
H&P: HPI History of Present Illness Date/Time: 07/04/24 18:29 Chief Complaint: Wound Infection Narrative: 64 y/o M presents here with infected pressure ulcerations with PMH of left AKA r/t diabetes, HTN, HLD, and contracture of the RLE. The patient presents here with presumed infected pressure ulcerations from home vis EMS. The patient is bed bound secondary to a left AKA (r/t diabetic foot), DDD, and permanent contracture of the right lower extremity due to the extremity being diseased with DM . Due to this he has developed pressure ulcers to his sacrum with onset approximately 3 weeks ago. The began draining purulent yellow fluid within the last 1-2 days which prompted them to seek further evaluation. Patient reports onset of diarrhea for the last month. Believes he is having approximately 7-8 stools per day, has slowed today. He currently lives at home in a hospital bed with his and is taken care of by , no home health. Denies personal history or family history of colon cancer. Has never had a colonoscopy. 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 Initial VS at presentation: 97.5? F, HR 79, RR 20, 178/96, and 96% on RA. ED workup showed: WBC 11.1, hemoglobin 10.3 (previously 16 in 2022), platelet count 460, potassium 3.3, creatinine 0.7 and GFR >60, calcium 7.7 (when corrected for albumin levels is 8.4), CRP 3.6, and UA showed high specific gravity, 2+ protein, 3-[address] of the abdomen/pelvis showed chronic marked rectus abdominus diastasis with a large left lower quadrant ventral hernia containing nonobstructed loops of small bowel, focal wall thickening of the tip of the cecum with 2.2 cm mass in a few smaller nodules in the immediate adjacent fat which is suspicious for primary colon cancer and ileo colic lymph node metastatic disease, more diffuse mild wall thickening of the rectum and distal sigmoid colon is suspicious for distal proctocolitis, incompletely visualized bilateral pleural effusions, cardiomegaly, small fat containing left inguinal hernia. Review of Systems Review of Systems: All systems reviewed & are unremarkable except as noted in HPI and below PMFSH Past Medical History Medical History Chronic low back pain Diabetes Flexion contracture of right knee Hernia of abdominal wall Osteomyelitis (~08/2020) Type 2 diabetes mellitus without complications Surgical History Surgical History History of left above knee amputation (~09/2020) due to osteomyelitis History of tonsillectomy (~1961) History of umbilical hernia repair (~2001) Status post amputation of right foot through metatarsal bone (~09/2020) Social History Social History Smoking status: Never smoker Second hand tobacco smoke exposure: No Alcohol intake: never Substance use: never Do You Feel Safe in your Home?: Yes Lack of Transportation: No Lack of Food: Never True Current Housing: I Have Housing Concerned About Future Housing: No Difficulty Paying Gas/Electric Bills: No Difficulty Paying for Meds: No Currently Unemployed: No Education: High School Diploma/GED Difficulty w/ Childcare or Family Care: No Living arrangements: with family Occupation/Education: retired Gender identity (if verbalized by the patient): Male Spiritual care concerns: No Agree to blood products: Yes Meds Home Medications and Allergies Home Medications Medication Instructions Recorded Confirmed Type blood sugar diagnostic (Advanced #50 ea 06/07/23 07/04/24 Rx Glucose Meter Test Strips) flash glucose scanning reader #1 ea 06/10/23 07/04/24 Rx (FreeStyle [place] 2 [place]) pen needle, diabetic 31 gauge x #400 ea 10/09/23 07/04/24 Rx 3/16 (Sure-Fine Pen [place]) losartan 50 mg-hydrochlorothiazide 1 tablet PO DAILY #90 tabs 12/09/23 07/04/24 Rx 12.5 mg tablet insulin aspart U-100 100 unit/mL 7 unit (0.07 mL) subcut TID #15 mL 04/10/24 07/04/24 Rx (3 mL) subcutaneous pen (Novolog FlexPen U-100 Insulin aspart) insulin glargine-yfgn 100 unit/mL 30 unit (0.3 mL) subcut QPM #15 mL 05/27/24 07/04/24 Rx (3 mL) subcutaneous pen (Semglee (insulin glargine-yfgn) Pen) Allergies Allergy/AdvReac Type Severity Reaction Status Date / Time No Known Allergies Allergy Verified 06/05/23 09:27 Vital Signs Vital Signs - 24 hr 07/04/24 10:00 07/04/24 10:31 07/04/24 10:46 Temperature 97.5 F L Pulse Rate 79 79 83 Respiratory Rate 20 26 H 17 Blood Pressure 178/96 H 208/105 H Pulse Oximetry 96 94 Oxygen Delivery Room Air 07/04/24 14:44 07/04/24 16:00 Temperature 97.2 F L 97.1 F L Pulse Rate 73 68 Respiratory Rate 25 H 20 Blood Pressure 173/94 H 181/100 H Pulse Oximetry 96 96 Oxygen Delivery Exam Narrative: Limited due to patient request. Const: General: comfortable and no acute distress Other: , male, chronically ill-appearing HENMT: Face/Nose/Sinus: Normal nares present Mouth: Yes moist mucous membranes Eyes: General: appearance normal, both eyes and all related structures Sclera: sclerae normal Pupils: Equal, round and reactive pupils present EOM: EOMs intact bilaterally Other: + blind in left eye Resp: Effort & Inspection: normal respiratory effort Auscultation: clear to auscultation bilaterally Cardio: Rate: regular rate Other: Frequent ectopy, +/-murmur GI: Other: Abdomen soft, nondistended, tender in the left lower quadrant when pannus lif rubin. Normoactive bowel sounds in all quadrants. Urinary Catheter: Urinary Catheter: patent and draining Skin: General skin exam: normal color and no rashes or lesions noted Other: Ecchymosis to left forearm. Erythema/irritation to pannus, limited exam. Patient refusing assessment of his bottom, known wound there. Neuro: Speech: normal speech Sensory Exam: normal sensation Other: Generalized weakness, A&O x4. 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 Psych: Mental Status: mental status grossly normal Affect: normal affect Other: Good insight and judgment. H&P: Results Labs Labs: Short CBC 07/04/24 07/04/24 Range/Units 10:52 14:36 WBC 11.1 H (4.5-10.0) K/mm3 Hgb 10.3 L D 9.6 L (14.0-18.0) g/dL Hct 32.6 L 30.3 L (42.0-52.0) % Plt Count 460 H D (150-375) k/mm3 BMP 07/04/24 10:52 Sodium 137 Potassium 3.3 L Chloride 100 Carbon Dioxide 31 H BUN 13 Creatinine 0.70 Glucose 125 H Calcium 7.7 L Liver Function 07/04/24 Range/Units 10:52 Total Bilirubin 0.5 (0.2-1.3) mg/dL AST 18 (17-59) U/L ALT 8 (6-50) U/L Alkaline Phosphatase 97 (38-126) U/L Albumin 3.1 L (3.5-5.1) g/dL Urine 07/04/24 Range/Units 14:36 Urine Color Yellow (Yellow) Urine Appearance Clear (Clear) Urine pH 5.5 (5.0-9.0) Ur Specific [place] > 1.045 H (1.001-1.035) Urine Protein 2+ H (Negative) mg/dL Urine Glucose (UA) Negative (Negative) mg/dL Assessment and Plan Assessment and plan (1) Cellulitis: Qualifiers: Site of cellulitis: buttock Qualified Code(s): L03.317 - Cellulitis of buttock Code(s): L03.90 - Cellulitis, unspecified Status: Acute Assessment and Plan: - did not meet SIRS criteria, however blood cultures were obtained in the ED. Follow. - CT abdomen/pelvis 1. Chronic marked rectus abdominis diastases with large left lower quadrant ventral hernia containing nonobstructed loops of small bowel. 2. Focal wall thickening at the tip the cecum with 2.2 cm mass and a few smaller nodules in the immediately adjacent fat which is suspicious for primary colon cancer and ileocolic lymph node metastatic disease. Would recommend attempted colonoscopy for further evaluation although this may prove challenging given the anatomy of the colon. 3. More diffuse mild wall thickening at the rectum and distal sigmoid colon is more suspicious for a distal proctocolitis which could be infectious, inflammatory or less likely ischemic in etiology. 4. Incompletely visualized bilateral pleural effusions. 5. Cardiomegaly. 6. Small fat-containing left inguinal hernia. - started on vancomycin, cefepime, Flagyl - wound culture if obtainable - analgesics and antipyretics p.r.n. - skin protection measures - trend WBC (2) Decubitus ulcer of sacral region, stage 2: Code(s): L89.152 - Pressure ulcer of sacral region, stage 2 Status: Acute Assessment and Plan: - see above - wound nurse consulted for recommendations (3) Pressure ulcer of left buttock: Qualifiers: Pressure injury stage: unspecified pressure injury stage Qualified Code(s): L89.329 - Pressure ulcer of left buttock, unspecified stage Code(s): L89.329 - Pressure ulcer of left buttock, unspecified stage Status: Acute Assessment and Plan: - see above - wound nurse consulted for recommendations (4) Lower GI bleed: Code(s): K92.2 - Gastrointestinal hemorrhage, unspecified Status: Acute Assessment and Plan: - +guaiac in ED without evidence of janett blood - Hgb 16.0 (05/2023) -> 10.3 - CT abd/pelvis showed focal wall thickening at the tip the cecum with 2.2 cm mass and a few smaller nodules in the immediately adjacent fat which is suspicious for primary colon cancer and ileocolic lymph node metastatic disease and possible distal proctocolitis (infection v inflammatory v ischemic) - trend H&H q.6 - start PPI IV BID (5) Anemia: Qualifiers: Anemia type: unspecified type Qualified Code(s): D64.9 - Anemia, unspecified Code(s): D64.9 - Anemia, unspecified Status: Acute Assessment and Plan: - Hgb 10.3 - MCV and MCHC low. will add iron, ferritin, TIBC, TSH, folate, and B12 - transfuse if less than 7 - monitor (6) Mass of colon: Code(s): K63.89 - Other specified diseases of intestine Status: Acute Assessment and Plan: - GI initially consulted for colonoscopy and biopsy, canceled - no prior colonoscopy - patient refusing colonoscopy, if mass is cancerous he will not seek treatment and despite extensive conversation he understands if it left untreated it will likely result in his (7) Ventral hernia: Qualifiers: Obstruction and gangrene presence: without obstruction or gangrene Qualified Code(s): K43.9 - Ventral hernia without obstruction or gangrene Code(s): K43.9 - Ventral hernia without obstruction or gangrene Status: Acute Assessment and Plan: - CT showing a large left lower quadrant ventral hernia containing nonobstructed loops of both small bowel - on exam no palpable hernia (8) Type 2 diabetes mellitus without complications: Qualifiers: Diabetes mellitus intermediate frame tender insulin use: without mcfp use Qualified Code(s): E11.9 - Type 2 diabetes mellitus without complications Code(s): E11.9 - Type 2 diabetes mellitus without complications Status: Chronic Assessment and Plan: - hypoglycemia protocol - POC blood glucose ACHS - home medication: NovoLog 7 units t.i.d., glargine 30 units HS - correct regimen ordered - high dose TIDWM, based off BMI - A1C 11.4% in 2022, update (9) Essential hypertension: Code(s): I10 - Essential (primary) hypertension Status: Chronic Assessment and Plan: - chronic, currently 181/100 - continue home medications: Losartan-hydrochlorothiazide 50-12.5 mg daily - monitor Plan Potassium 3.3, given 40 KCL p.o. Recheck in a.m. Patient is requesting very limited treatment, would solely like to have the ulcers to his bottom treated with antibiotics. Otherwise would like to forego further testing or treatment at this time. Specifically he is citing that he does not want a colonoscopy or surgery. If mass is cancerous he does not want to seek treatment. Electing to be DNR. Patient educated that this may result in his , verbalized understanding. Patient also reported new complete vision loss in his left eye, offered a MRI to screen him for a stroke, patient also declined this imaging. Diet: Diabetic GI Prophylaxis: Pantoprazole IVP b.i.d. DVT Prophylaxis: RUBIN Lines: Peripheral Code Status: DNR Quality VTE Prophylaxis VTE prophylaxis: mechanical ordered Hospitalist MIPS Advance Care Plan I have confirmed that the patient's Advanced Care Plan is present, code status is documented, or surrogate decision maker is listed in patient medical record.: Yes Medication Reconciliation I have utilized all available resources to obtain, update and review the patients current medications (includes all prescriptions, OTC, herbals, cannabis, and nutritional supplements).: Yes
[2024-07-04 19:44] LABS: Glucose Point of Care 149 mg/dl (65-105)
[2024-07-04 20:08] LABS: Hemoglobin A1C 5.7 % (<5.7)
[2024-07-04] MEDS: INSULIN GLARGINE (*BKC) 100 UNITS/ML 30 UNITS SUB-Q (20:09)
[2024-07-04] MEDS: CEFEPIME 2 GM/NS 50 ML 2 GM/50 ML BAG IVPB (20:09)
[2024-07-04 20:45] LABS: Hematocrit 31.4 % (42.0-52.0); Hemoglobin 9.7 g/dL (14.0-18.0)
[2024-07-04 21:07] LABS: Iron 26 ug/dL (49-181)
[2024-07-04 21:16] LABS: Percent Iron Saturation 8 % (20-50)
[2024-07-04] MEDS: PANTOPRAZOLE SODIUM IV 40 MG VIAL IV PUSH (22:24)
[2024-07-04] MEDS: metroNIDAZOLE 500 MG/ISO 100ML 500 MG/100 ML BAG 100 MG IVPB (22:24)
[2024-07-04 22:33] LABS: Folic Acid 6.1 ng/mL (2.76->20)
--- NOTE | 2024-07-04 22:48 | PC.NURSE ---
pt is oriented times 4 and is refusing to be turned and refusing to take pictures of wounds. Pain medicine was offered as pretreatment and explanation of the importance of wound photos was giving.
[2024-07-05] VITALS (10 sets, daily range): BP systolic 140–170; BP diastolic 67–87; PULSE 68–85; RESP 18–20; TEMP 35.7–37.4; O2SAT 91–99
[2024-07-05] MEDS: VANCOMYCIN 1,500 MG/NS 500 ML 1,500 MG/500 ML BAG 250 MG IVPB ×2 (01:18→15:45)
[2024-07-05 03:20] LABS: Hematocrit 30.2 % (42.0-52.0); Hemoglobin 9.6 g/dL (14.0-18.0)
[2024-07-05 03:37] LABS: Alanine Aminotransferase 9 U/L (6-50); Albumin Level 2.7 g/dL (3.5-5.1); Alkaline Phosphatase 82 U/L (38-126); Anion Gap 6 mmol/L (4-12); Aspartate Amino Transferase 19 U/L (17-59); Bilirubin,Total 0.5 mg/dL (0.2-1.3); Blood Urea Nitrogen 11 mg/dL (9-20); Calcium 7.6 mg/dL (8.4-10.2); Carbon Dioxide 28 mmol/L (22-30); Chloride 103 mmol/L (98-107); Estimated CRCL calculation 121 ml/min; Estimated Glomerular Filt Rate > 60; Glucose 99 mg/dL (65-110); Potassium 3.3 mmol/L (3.4-5.0); Sodium 137 mmol/L (137-145)
[2024-07-05] MEDS: HYDROcodone/acetaminophen (*CRX) 5-325 MG TABLET 1 TAB PO ×2 (04:21→14:08)
[2024-07-05] MEDS: metroNIDAZOLE 500 MG/ISO 100ML 500 MG/100 ML BAG 100 MG IVPB ×3 (06:52→20:42)
[2024-07-05 08:03] LABS: Glucose Point of Care 58 mg/dl (65-105)
[2024-07-05 08:32] LABS: Glucose Point of Care 56 mg/dl (65-105)
[2024-07-05] MEDS: DEXTROSE 50% 25 GM/50 ML SYRINGE IV PUSH (08:39)
--- NOTE | 2024-07-05 08:41 | P.PNIM_ITS ---
Progress Note: A&P Assessment and Plan (1) Cellulitis: Qualifiers: Site of cellulitis: buttock Qualified Code(s): L03.317 - Cellulitis of buttock Code(s): L03.90 - Cellulitis, unspecified Status: Acute (2) Decubitus ulcer of sacral region, stage 2: Code(s): L89.152 - Pressure ulcer of sacral region, stage 2 Status: Acute (3) Pressure ulcer of left buttock: Qualifiers: Pressure injury stage: unspecified pressure injury stage Qualified Code(s): L89.329 - Pressure ulcer of left buttock, unspecified stage Code(s): L89.329 - Pressure ulcer of left buttock, unspecified stage Status: Acute Assessment and Plan: That (4) Lower GI bleed: Code(s): K92.2 - Gastrointestinal hemorrhage, unspecified Status: Acute (5) Anemia: Qualifiers: Anemia type: unspecified type Qualified Code(s): D64.9 - Anemia, unspe cified Code(s): D64.9 - Anemia, unspecified Status: Acute (6) Mass of colon: Code(s): K63.89 - Other specified diseases of intestine Status: Acute (7) Ventral hernia: Qualifiers: Obstruction and gangrene presence: without obstruction or gangrene Qualified Code(s): K43.9 - Ventral hernia without obstruction or gangrene Code(s): K43.9 - Ventral hernia without obstruction or gangrene Status: Acute (8) Type 2 diabetes mellitus without complications: Qualifiers: 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 His stated that the ulcer started draining yellow purulent drainage and hence brought to the ED for evaluation. Is a bed- bound at home and stays in the hospital bed. He has chronic right lower extremity contracture chronic left lower quadrant ventral hernia. He also had some diarrhea a few days ago has now resolved. No fever nausea vomiting. In the ED he was hypertensive afebrile oxygen saturation was adequate. CBC with WBC of 11.1 hemoglobin of 10.3 came panel showed hypokalemia 3.3 hypocalcemia 7.7 CRP was 3.678 lactate was normal at 1.[address] abdomen pelvis showed chronic marked rectus abdominus diastasis with large left lower quadrant ventral hernia containing nonobstructed loops of small bowel. There is also focal wall thickening at the tip of cecum with 2.2 cm mass and a few smaller nodules in the immediate sent fat which is suspicious for primary colon cancer and ileocolic lymph node metastatic disease. More diffuse mild wall thickening of the rectum and distal sigmoid colon more suspicious for distal proctocolitis which could be infectious inflammatory less likely ischemic in etiology. Bilateral pleural effusions cardiomegaly and small fat containing left inguinal hernia. Anemia he was FOBT positive in the ER. Patient refuses to get colonoscopy or any further evaluation for this. Patient has been started on vancomycin cefepime and Flagyl. Wound culture s acral wound. Wound Care consult. 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 Recheck A1c Chronic low back pain Bed-bound status Hypertension DVT prophylaxis: Code status do not resuscitate Subjective Date/time seen: 07/05/24 08:41 Interval history: Patient tired and sleeping. Family at bedside does not want do much intervention. Discussed about hospice with family Review of Systems Review of Systems: All systems reviewed & are unremarkable except as noted in HPI and below Exam Narrative: GENERAL: no acute distress. Poor hygiene somnolent HEAD: Normocephalic, atraumatic. EYES: PERRLA and EOMI. NECK: Supple. CHEST: Clear to auscultation. No respiratory distress. HEART: Regular rate and rhythm. No murmur heard. Normal peripheral pulses. ABDOMEN: normoactive bowel sounds. Abdomen soft with mild tenderness over the left lower quadrant ventral hernia. Hernia not easily reduced. No overlying skin changes EXTREMITIES: left proximal thigh amputation, right knee chronic contracture SKIN: several stage II ulcerations to the sacrum extending near the scrotum with surrounding blanching erythema and warmth that extends superiorly up the back. No crepitus, no necrosis. Yellow purulence noted on bandages NEURO: No focal deficits. Objective Data Vital Signs Vital Signs: Vital Signs - 24 hr 07/04/24 10:00 07/04/24 10:31 07/04/24 10:46 Temperature 97.5 F L Pulse Rate 79 79 83 Respiratory Rate 20 26 H 17 Blood Pressure 178/96 H 208/105 H Pulse Oximetry 96 94 Oxygen Delivery Room Air 07/04/24 14:44 07/04/24 16:00 07/04/24 16:00 Temperature 97.2 F L 97.1 F L Pulse Rate 73 68 Respiratory Rate 25 H 20 Blood Pressure 173/94 H 181/100 H Pulse Oximetry 96 96 Oxygen Delivery Room Air 07/04/24 16:03 07/04/24 20:33 07/04/24 20:00 Temperature 98.1 F Pulse Rate 72 78 78 Respiratory Rate 20 Blood Pressure 147/84 H Pulse Oximetry 92 Oxygen Delivery 07/05/24 00:00 07/05/24 04:00 07/05/24 05:54 Temperature 98 F Pulse Rate 75 85 76 Respiratory Rate 20 Blood Pressure 170/87 H Pulse Oximetry 92 Oxygen Delivery Intake/Output Intake/Output: Intake & Output 07/02/24 07/03/24 07/04/24 07/05/24 23:59 23:59 23:59 23:59 Intake Total 1090 300 Output Total 550 250 Balance 540 50 Meds/Results Medications: Active Medications Generic Name Dose Route Start Last Admin Trade Name Freq PRN Reason Stop Dose Admin Acetaminophen 650 mg 07/04/24 18:58 Acetaminophen 325 Mg Tablet PO Q4H PRN Mild Pain (1-3) or Fever Hydrocodone Bitart/Acetaminophen 1 tab 07/04/24 18:58 07/05/24 04:21 Hydrocodone/Acetaminophen (*Crx) 5-325 Mg Tablet PO 1 tab Q4H PRN Administration Moderate Pain (4-6) Bisacodyl 5 mg 07/04/24 18:58 Bisacodyl 5 Mg Tablet Ec PO DAILY PRN Constipation Dextrose 12.5 gm 07/04/24 19:00 07/05/24 08:39 Dextrose 50% 25 Gm/50 Ml Syringe IV PUSH 12.5 gm PRN PRN Administration Hypoglycemia Protocol Glucagon 1 mg 07/04/24 19:00 Glucagon For Inj 1 Mg Vial IM PRN PRN Hypoglycemia Protocol Glucose 15 gm 07/04/24 19:00 Glucose Oral Gel 15 Gm Of Glucse In 37.5 Gm Tube PO PRN PRN Hypoglycemia Protocol Hydrochlorothiazide 12.5 mg 07/05/24 09:00 Hydrochlorothiazide 12.5 Mg Capsule PO DAILY [facility] Vancomycin HCl 1,500 mg in 500 mls @ 250 mls/hr 07/05/24 01:00 07/05/24 01:18 Vancomycin 1,500 Mg/Ns 500 Ml IVPB 250 mls/hr Q12H K[facility]USHI Administration Cefepime HCl 2 gm in 50 mls @ 100 mls/hr 07/04/24 20:00 07/04/24 20:09 Maxipime 2 Gm/Ns 50 Ml IVPB 100 mls/hr Q12H K[facility]USHI Administration Metronidazole 500 mg in 100 mls @ 100 mls/hr 07/04/24 22:00 07/05/24 06:52 Flagyl 500 Mg/Iso Soln 100 Ml IVPB 100 mls/hr Q8H K[facility]USHI Administration Dextrose 1,000 mls @ 100 mls/hr 07/04/24 19:00 Dextrose 5% 1,000 Ml IVPB PRN PRN Hypoglycemia Protocol Insulin Aspart 4 - 8 units 07/05/24 08:00 07/05/24 08:11 Insulin Aspart (*Bkc) 100 Units/Ml SUB-Q Not Given TIDWM [facility] Protocol Insulin Aspart 5 units 07/05/24 09:00 Insulin Aspart (*Bkc) 100 Units/Ml SUB-Q TID [facility] Insulin Glargine 20 units 07/05/24 18:00 Insulin Glargine (*Bkc) 100 Units/Ml SUB-Q QPM [facility] Losartan Potassium 50 mg 07/05/24 09:00 Losartan Potassium 50 Mg Tablet PO DAILY [facility] Morphine Sulfate 2 mg 07/04/24 18:58 Morphine Sulfate (*Crx) 2 Mg/Ml Inj IV PUSH Q4H PRN Pain Rated 7-10 Naloxone HCl 0.1 mg 07/04/24 18:58 Naloxone Hcl 0.4 Mg/Ml Vial IV PUSH Q2M PRN Opiate Reversal Ondansetron HCl 4 mg 07/04/24 18:58 Ondansetron Inj 4 Mg/2 Ml Vial IV PUSH Q6H PRN Nausea And Vomiting Pantoprazole Sodium 40 mg 07/04/24 21:00 07/04/24 22:24 Pantoprazole Sodium Iv 40 Mg Vial IV PUSH 40 mg Q12HR KHUSHI Administration Radiology Results: ITS Impressions Abdomen/Pelvis CT 07/04/24 12:21 IMPRESSION: 1. Chronic marked rectus abdominis diastases with large left lower quadrant ventral hernia containing nonobstructed loops of small bowel. 2. Focal wall thickening at the tip the cecum with 2.2 cm mass and a few smaller nodules in the immediately adjacent fat which is suspicious for primary colon cancer and ileocolic lymph node metastatic disease. Would recommend attempted colonoscopy for further evaluation although this may prove challenging given the anatomy of the colon. 3. More diffuse mild wall thickening at the rectum and distal sigmoid colon is more suspicious for a distal proctocolitis which could be infectious, inflammatory or less likely ischemic in etiology. 4. Incompletely visualized bilateral pleural effusions. 5. Cardiomegaly. 6. Small fat-containing left inguinal hernia. Labs Labs: Laboratory Results - last 24 hr 07/04/24 07/04/24 07/04/24 10:52 14:36 19:39 WBC 11.1 H RBC 4.11 L Hgb 10.3 L D 9.6 L Hct 32.6 L 30.3 L MCV 79.3 L MCH 25.1 L MCHC 31.6 L RDW 18.6 H Plt Count 460 H D MPV 11.4 H Immature Gran % (Auto) 0.4 Neut % (Auto) 73.9 H Lymph % (Auto) 12.5 L [place] % (Auto) 7.7 Eos % (Auto) 4.1 Baso % (Auto) 1.4 H Lymph # (Auto) 1.39 [place] # (Auto) 0.9 H Eos # (Auto) 0.5 H Baso # (Auto) 0.2 H Abs Immat Gran (auto) 0.04 H Absolute Neuts (auto) 8.2 H Absolute Nucleated RBC 0.000 Nucleated RBC % 0.0 ESR 78 H Sodium 137 Potassium 3.3 L Chloride 100 Carbon Dioxide 31 H Anion Gap 6 BUN 13 Creatinine 0.70 Estim Creat Clear Calc 105 Estimated GFR > 60 Glucose 125 H POC Capillary Glucose 149 H Hemoglobin A1c 5.7 Lactic Acid 1.5 Calcium 7.7 L Magnesium 1.8 Iron TIBC % Saturation Ferritin Total Bilirubin 0.5 AST 18 ALT 8 Alkaline Phosphatase 97 C-Reactive Protein 3.6 H Total Protein 7.0 Albumin 3.1 L Vitamin B12 Folate TSH (Reflex) Urine Color Yellow Urine Appearance Clear Urine pH 5.5 Ur Specific [place] > 1.045 H Urine Protein 2+ H Urine Glucose (UA) Negative Urine Ketones Negative Ur Blood (Man) Non-hemolyzed trace Urine Nitrate Negative Urine Bilirubin Negative Urine Urobilinogen 1.0 Leukocyte Esterase Rfl Negative Urine RBC 3-5 H Urine WBC 0-5 Ur Squamous Epith Cells None seen Urine Bacteria None seen Urine Casts 0-2 07/04/24 07/05/24 07/05/24 20:41 03:08 08:00 WBC RBC Hgb 9.7 L 9.6 L Hct 31.4 L 30.2 L MCV MCH MCHC RDW Plt Count MPV Immature Gran % (Auto) Neut % (Auto) Lymph % (Auto) [place] % (Auto) Eos % (Auto) Baso % (Auto) Lymph # (Auto) [place] # (Auto) Eos # (Auto) Baso # (Auto) Abs Immat Gran (auto) Absolute Neuts (auto) Absolute Nucleated RBC Nucleated RBC % ESR Sodium 137 Potassium 3.3 L Chloride 103 Carbon Dioxide 28 Anion Gap 6 BUN 11 Creatinine 0.60 L Estim Creat Clear Calc 121 Estimated GFR > 60 Glucose 99 POC Capillary Glucose 58 L* Hemoglobin A1c Lactic Acid Calcium 7.6 L Magnesium Iron 26 L TIBC 313 % Saturation 8 L Ferritin 17.40 Total Bilirubin 0.5 AST 19 ALT 9 Alkaline Phosphatase 82 C-Reactive Protein Total Protein 6.0 L Albumin 2.7 L Vitamin B12 437.0 Folate 6.1 TSH (Reflex) 1.850 Urine Color Urine Appearance Urine pH Ur Specific [place] Urine Protein Urine Glucose (UA) Urine Ketones Ur Blood (Man) Urine Nitrate Urine Bilirubin Urine Urobilinogen Leukocyte Esterase Rfl Urine RBC Urine WBC Ur Squamous Epith Cells Urine Bacteria Urine Casts 07/05/24 08:29 WBC RBC Hgb Hct MCV MCH MCHC RDW Plt Count MPV Immature Gran % (Auto) Neut % (Auto) Lymph % (Auto) [place] % (Auto) Eos % (Auto) Baso % (Auto) Lymph # (Auto) [place] # (Auto) Eos # (Auto) Baso # (Auto) Abs Immat Gran (auto) Absolute Neuts (auto) Absolute Nucleated RBC Nucleated RBC % ESR Sodium Potassium Chloride Carbon Dioxide Anion Gap BUN Creatinine Estim Creat Clear Calc Estimated GFR Glucose POC Capillary Glucose 56 L* Hemoglobin A1c Lactic Acid Calcium Magnesium Iron TIBC % Saturation Ferritin Total Bilirubin AST ALT Alkaline Phosphatase C-Reactive Protein Total Protein Albumin Vitamin B12 Folate TSH (Reflex) Urine Color Urine Appearance Urine pH Ur Specific [place] Urine Protein Urine Glucose (UA) Urine Ketones Ur Blood (Man) Urine Nitrate Urine Bilirubin Urine Urobilinogen Leukocyte Esterase Rfl Urine RBC Urine WBC Ur Squamous Epith Cells Urine Bacteria Urine Casts
[2024-07-05 08:44] LABS: Hematocrit 31.6 % (42.0-52.0); Hemoglobin 9.9 g/dL (14.0-18.0)
[2024-07-05 09:04] LABS: Glucose Point of Care 160 mg/dl (65-105)
[2024-07-05] MEDS: hydroCHLOROthiazide 12.5 MG CAPSULE PO (10:10)
[2024-07-05] MEDS: CEFEPIME 2 GM/NS 50 ML 2 GM/50 ML BAG IVPB ×2 (10:10→20:42)
[2024-07-05] MEDS: POTASSIUM CHLORIDE 20 MEQ ER TABLET 40 MEQ PO (10:10)
[2024-07-05] MEDS: PANTOPRAZOLE SODIUM IV 40 MG VIAL IV PUSH ×2 (10:10→20:42)
[2024-07-05] MEDS: LOSARTAN POTASSIUM 50 MG TABLET PO (10:10)
--- NOTE | 2024-07-05 10:26 | WPDGICN ---
Assessment and Plan Assessment and plan (1) Mass of colon: Code(s): K63.89 - Other specified diseases of intestine Status: Acute Assessment and Plan: new finding, also microcytic anemia and noted + FOBT with change bowel habits he is refusing colonoscopy, does not want to have any sort of gi evaluation and he says that does not care even if is cancer. He says that quality of life last 3 years has been pretty miserable and does not want any invasive procedures will follow only as needed (2) Lower GI bleed: Code(s): K92.2 - Gastrointestinal hemorrhage, unspecified Status: Acute Assessment and Plan: probably from colon mass (3) Ventral hernia: Qualifiers: Obstruction and gangrene presence: without obstruction or gangrene Qualified Code(s): K43.9 - Ventral hernia without obstruction or gangrene Code(s): K43.9 - Ventral hernia without obstruction or gangrene Status: Acute Assessment and Plan: large size (4) Uncontrolled diabetes mellitus: Qualifiers: Diabetes mellitus type: type 2 Glycemic state: with hyperglycemia Qualified Code(s): E11.65 - Type 2 diabetes mellitus with hyperglycemia Code(s): E11.65 - Type 2 diabetes mellitus with hyperglycemia Status: Acute (5) Microcytic anemia: Code(s): D50.9 - Iron deficiency anemia, unspecified Status: Acute Assessment and Plan: probably from cancer (6) Decubitus ulcer of sacral region, stage 2: Code(s): L89.152 - Pressure ulcer of sacral region, stage 2 Status: Acute Assessment and Plan: by primary GI Consult Note Consult date/time: 07/05/24 10:26 Reason for consult: cecal mass, + FOBT HPI: Emiliano Jj is a 64 year old male wiht history of left AKA r/t diabetes, HTN, HLD, and contracture of the RLE, he is bed bound. He is here for more drainage of decubitus wound, also diarrhea for the last month about 7-8 stools per day. He lives at home in a hospital bed with his and is taken care of by , no home health. ED evaluation WBC 11.1, hemoglobin 10.3 (previously 16 in 2022), platelet count 460, potassium 3.3, creatinine 0.7 , also + occult blood stool (denies overt gib)- never had colonoscopy. CT of the abdomen/pelvis showed chronic marked rectus abdominus diastasis with a large left lower quadrant ventral hernia containing nonobstructed loops of small bowel, focal wall thickening of the tip of the cecum with 2.2 cm mass in a few smaller nodules in the immediate adjacent fat which is suspicious for primary colon cancer and ileo colic lymph node metastatic disease Review of Systems Constitutional: Constitutional: Reports fatigue Eyes: Eyes: Reports blurry vision ENT: Reports Normal hearing present Cardiovascular: Cardiovascular: Denies chest pain Respiratory: Respiratory: Denies cough Gastrointestinal: Gastrointestinal: Reports diarrhea Musculoskeletal: Comments: decubitus ulcer Integumentary/Breasts: Skin/Breast: Denies pruritus Neurologic: Denies confusion Psychiatric: Psychiatric: Denies confusion [facility] Past Medical History Medical History (Updated 07/05/24 @ 10:31 by Ricardo Raymundo MD) Chronic low back pain Diabetes Flexion contracture of right knee Hernia of abdominal wall Microcytic anemia Osteomyelitis (~08/2020) Type 2 diabetes mellitus without complications Surgical History Surgical History History of left above knee amputation (~09/2020) due to osteomyelitis History of tonsillectomy (~1961) History of umbilical hernia repair (~2001) Status post amputation of right foot through metatarsal bone (~09/2020) Social History Social History Smoking status: Never smoker Second hand tobacco smoke exposure: No Alcohol intake: never Substance use: never Do You Feel Safe in your Home?: Yes Lack of Transportation: No Lack of Food: Never True Current Housing: I Have Housing Concerned About Future Housing: No Difficulty Paying Gas/Electric Bills: No Difficulty Paying for Meds: No Currently Unemployed: No Education: High School Diploma/GED Difficulty w/ Childcare or Family Care: No Living arrangements: with family Occupation/Education: retired Gender identity (if verbalized by the patient): Male Spiritual care concerns: No Agree to blood products: Yes Meds Home Medications and Allergies Home Medications Medication Instructions Recorded Confirmed Type blood sugar diagnostic (Advanced #50 ea 06/07/23 07/04/24 Rx Glucose Meter Test Strips) flash glucose scanning reader #1 ea 06/10/23 07/04/24 Rx (FreeStyle [place] [address] [place]) pen needle, diabetic 31 gauge x #400 ea 10/09/23 07/04/24 Rx 3/16 (Sure-Fine Pen [place]) losartan 50 mg-hydrochlorothiazide 1 tablet PO DAILY #90 tabs 12/09/23 07/04/24 Rx 12.5 mg tablet insulin aspart U-100 100 unit/mL 7 unit (0.07 mL) subcut TID #15 mL 04/10/24 07/04/24 Rx (3 mL) subcutaneous pen (Novolog FlexPen U-100 Insulin aspart) insulin glargine-yfgn 100 unit/mL 30 unit (0.3 mL) subcut QPM #15 mL 05/27/24 07/04/24 Rx (3 mL) subcutaneous pen (Semglee (insulin glargine-yfgn) Pen) Allergies Allergy/AdvReac Type Severity Reaction Status Date / Time No Known Allergies Allergy Verified 06/05/23 09:27 Vital Signs Vital Signs - 24 hr 07/04/24 10:31 07/04/24 10:46 07/04/24 14:44 Temperature 97.2 F L Pulse Rate 79 83 73 Respiratory Rate 26 H 17 25 H Blood Pressure 178/96 H 208/105 H 173/94 H Pulse Oximetry 94 96 Oxygen Delivery Fraction of Inspired Oxygen 07/04/24 16:00 07/04/24 16:00 07/04/24 16:03 Temperature 97.1 F L Pulse Rate 68 72 Respiratory Rate 20 Blood Pressure 181/100 H Pulse Oximetry 96 Oxygen Delivery Room Air Fraction of Inspired Oxygen 07/04/24 20:33 07/04/24 20:00 07/05/24 00:00 Temperature 98.1 F Pulse Rate 78 78 75 Respiratory Rate 20 Blood Pressure 147/84 H Pulse Oximetry 92 Oxygen Delivery Fraction of Inspired Oxygen 07/05/24 04:00 07/05/24 05:54 07/05/24 08:00 Temperature 98 F Pulse Rate 85 76 Respiratory Rate 20 Blood Pressure 170/87 H Pulse Oximetry 92 91 Oxygen Delivery Room Air Fraction of Inspired Oxygen 21 Exam Const: General: comfortable and no acute distress Other: , male, chronically ill-appearing HENMT: Face/Nose/Sinus: Normal nares present Eyes: General: appearance normal, both eyes and all related structures Sclera: sclerae normal Other: + blind in left eye Neck: Neck: supple Resp: Effort & Inspection: normal respiratory effort Auscultation: clear to auscultation bilaterally Cardio: Rate: regular rate Other: Frequent ectopy, +/-murmur GI: GI Palp: Yes Soft to palpation Auscultation: normal bowel sounds Other: nondistended, tender in the left lower quadrant, large ventral hernia. Urinary Catheter: Urinary Catheter: patent and draining Skin: General skin exam: normal color and no rashes or lesions noted Other: Ecchymosis to left forearm. Patient refusing assessment of his bottom, known wound there. Neuro: Speech: normal speech Sensory Exam: normal sensation Other: Generalized weakness, A&O x4. 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 Psych: Mental Status: mental status grossly normal Affect: normal affect Other: Good insight and judgment. Results Labs 07/05/24 08:34 07/05/24 03:08 Labs: Short CBC 07/04/24 07/04/24 07/04/24 Range/Units 10:52 14:36 20:41 WBC 11.1 H (4.5-10.0) K/mm3 Hgb 10.3 L D 9.6 L 9.7 L (14.0-18.0) g/dL Hct 32.6 L 30.3 L 31.4 L (42.0-52.0) % Plt Count 460 H D (150-375) k/mm3 07/05/24 07/05/24 Range/Units 03:08 08:34 WBC (4.5-10.0) K/mm3 Hgb 9.6 L 9.9 L (14.0-18.0) g/dL Hct 30.2 L 31.6 L (42.0-52.0) % Plt Count (150-375) k/mm3 BMP 07/04/24 07/05/24 10:52 03:08 Sodium 137 137 Potassium 3.3 L 3.3 L Chloride 100 103 Carbon Dioxide 31 H 28 BUN 13 11 Creatinine 0.70 0.60 L Glucose 125 H 99 Calcium 7.7 L 7.6 L Liver Function 07/04/24 07/05/24 Range/Units 10:52 03:08 Total Bilirubin 0.5 0.5 (0.2-1.3) mg/dL AST 18 19 (17-59) U/L ALT 8 9 (6-50) U/L Alkaline Phosphatase 97 82 (38-126) U/L Albumin 3.1 L 2.7 L (3.5-5.1) g/dL Urine 07/04/24 Range/Units 14:36 Urine Color Yellow (Yellow) Urine Appearance Clear (Clear) Urine pH 5.5 (5.0-9.0) Ur Specific [place] > 1.045 H (1.001-1.035) Urine Protein 2+ H (Negative) mg/dL Urine Glucose (UA) Negative (Negative) mg/dL
[2024-07-05 12:08] LABS: Glucose Point of Care 128 mg/dl (65-105)
--- NOTE | 2024-07-05 14:50 | PC.NURSE ---
Pt refusing to move to specialty bed after several attempts to educate patient the importance of the specialty bed for wound healing. Pt states I do not understand why you all can't just leave me alone. This RN asked the patient what he would like us to do for him while he is in the hospital since he is refusing care, and pt repeated I would like to be left alone. Pt has refused and/or challenged every intervention ordered for his care.
[2024-07-05 16:59] LABS: Glucose Point of Care 113 mg/dl (65-105)
[2024-07-05 20:04] LABS: Glucose Point of Care 117 mg/dl (65-105)
[2024-07-06] VITALS (9 sets, daily range): BP systolic 128–176; BP diastolic 65–88; PULSE 70–76; RESP 18–20; TEMP 36.7–37.4; O2SAT 93–97
[2024-07-06 00:53] LABS: Vancomycin Trough 26.5 ug/mL (10.0-20.0)
[2024-07-06] MEDS: metroNIDAZOLE 500 MG/ISO 100ML 500 MG/100 ML BAG 100 MG IVPB ×3 (05:15→21:54)
[2024-07-06 06:54] LABS: Basophils Absolute Auto 0.2 K/mm3 (0.0-0.1); Basophils Percent Auto 1.4 % (0.2-1.2); Eosinophils Absolute Auto 0.9 K/mm3 (0-0.3); Eosinophils Percent Auto 8.6 % (0-4.4); Hematocrit 29.7 % (42.0-52.0); Hemoglobin 9.3 g/dL (14.0-18.0); Immature Granulocyte Absolute 0.03 K/mm3 (0.00-0.031); Immature Granulocyte Percent A 0.3 % (0-0.5); Lymphocytes Percent Auto 9.1 % (18.3-44.2); Mean Corpuscular HGB Conc 31.3 g/dl (32-36); Mean Corpuscular Hemoglobin 24.6 pg (26-34); Mean Corpuscular Volume 78.6 fl (80-100); Mean Platelet Volume 10.8 fl (7.4-10.4); Monocytes Absolute Auto 0.8 K/mm3 (0.1-0.6); Monocytes Percent Auto 6.9 % (2.6-8.5); Neutrophils Absolute Auto 8.1 K/mm3 (1.3-6.7); Neutrophils Percent Auto 73.7 % (45.5-73.1); Platelet Count Result 405 k/mm3 (150-375); Red Blood Count 3.78 M/mm3 (4.6-6.20); Red Cell Distribution Width 18.6 % (11.5-14.5)
[2024-07-06 07:07] LABS: Alanine Aminotransferase 9 U/L (6-50); Albumin Level 2.8 g/dL (3.5-5.1); Alkaline Phosphatase 80 U/L (38-126); Anion Gap 6 mmol/L (4-12); Aspartate Amino Transferase 19 U/L (17-59); Bilirubin,Total 0.5 mg/dL (0.2-1.3); Blood Urea Nitrogen 12 mg/dL (9-20); Calcium 7.5 mg/dL (8.4-10.2); Carbon Dioxide 27 mmol/L (22-30); Chloride 101 mmol/L (98-107); Estimated CRCL calculation 105 ml/min; Estimated Glomerular Filt Rate > 60; Glucose 97 mg/dL (65-110); Magnesium 1.8 mg/dL (1.6-2.3); Potassium 3.3 mmol/L (3.4-5.0); Sodium 134 mmol/L (137-145)
[2024-07-06 07:19] LABS: Glucose Point of Care 95 mg/dl (65-105)
[2024-07-06] MEDS: hydroCHLOROthiazide 12.5 MG CAPSULE PO (08:13)
[2024-07-06] MEDS: LOSARTAN POTASSIUM 50 MG TABLET PO (08:14)
[2024-07-06] MEDS: CEFEPIME 2 GM/NS 50 ML 2 GM/50 ML BAG IVPB ×2 (08:15→21:54)
[2024-07-06] MEDS: VANCOMYCIN 1,000 MG/NS 250 ML 1,000 MG/250 ML BAG 250 MG IVPB ×2 (08:16→21:54)
[2024-07-06] MEDS: PANTOPRAZOLE SODIUM IV 40 MG VIAL IV PUSH ×2 (08:17→21:53)
[2024-07-06] MEDS: POTASSIUM CHLORIDE 20 MEQ ER TABLET 40 MEQ PO (10:14)
[2024-07-06 11:23] LABS: Glucose Point of Care 139 mg/dl (65-105)
[2024-07-06] MEDS: INSULIN ASPART (*BKC) 100 UNITS/ML SUB-Q (12:02)
--- NOTE | 2024-07-06 13:20 | PM.IMPN ---
Progress Note: A&P Assessment and Plan (1) Cellulitis: Qualifiers: Site of cellulitis: buttock Qualified Code(s): L03.317 - Cellulitis of buttock Code(s): L03.90 - Cellulitis, unspecified Status: Acute (2) Decubitus ulcer of sacral region, stage 2: Code(s): L89.152 - Pressure ulcer of sacral region, stage 2 Status: Acute (3) Pressure ulcer of left buttock: Qualifiers: Pressure injury stage: unspecified pressure injury stage Qualified Code(s): L89.329 - Pressure ulcer of left buttock, unspecified stage Code(s): L89.329 - Pressure ulcer of left buttock, unspecified stage Status: Acute (4) Lower GI bleed: Code(s): K92.2 - Gastrointestinal hemorrhage, unspecified Status: Acute (5) Anemia: Qualifiers: Anemia type: unspecified type Qualified Code(s): D64.9 - Anemia, unspecified Code(s): D64.9 - Anemia, unspecified Status: Acute (6) Mass of colon: Code(s): K63.89 - Other specified diseases of intestine Status: Acute (7) Ventral hernia: Qualifiers: Obstruction and gangrene presence: without obstruction or gangrene Qualified Code(s): K43.9 - Ventral hernia without obstruction or gangrene Code(s): K43.9 - Ventral hernia without obstruction or gangrene Status: Acute (8) Type 2 diabetes mellitus without complications: Qualifiers: Diabetes mellitus superintendent terminal insulin use: without superintendent terminal use Qualified Code(s): E11.9 - Type 2 diabetes mellitus without complications Code(s): E11.9 - Type 2 diabetes mellitus without complications Status: Chronic (9) Essential hypertension: Code(s): I10 - Essential (primary) hypertension Status: Chronic Plan This is a 64-year-old presented via EMS from for is ulceration and in his bottom for the past couple of weeks. His stated that the ulcer started draining yellow purulent drainage and hence brought to the ED for evaluation. Is a bed-bound at home and stays in the hospital bed. He has chronic right lower extremity contracture chronic left lower quadrant ventral hernia. He also had some diarrhea a few days ago has now resolved. No fever nausea vomiting. In the ED he was hypertensive afebrile oxygen saturation was adequate. CBC with WBC of 11.1 hemoglobin of 10.3 came panel showed hypokalemia 3.3 hypocalcemia 7.7 CRP was 3.678 lactate was normal at 1.[address] abdomen pelvis showed chronic marked rectus abdominus diastasis with large left lower quadrant ventral hernia containing nonobstructed loops of small bowel. There is also focal wall thickening at the tip of cecum with 2.2 cm mass and a few smaller nodules in the immediate sent fat which is suspicious for primary colon cancer and ileocolic lymph node metastatic disease. More diffuse mild wall thickening of the rectum and distal sigmoid colon more suspicious for distal proctocolitis which could be infectious inflammatory less likely ischemic in etiology. Bilateral pleural effusions cardiomegaly and small fat containing left inguinal hernia. Anemia he was FOBT positive in the ER. Patient refuses to get colonoscopy or any further evaluation for this. Patient has been started on vancomycin cefepime and Flagyl. Wound culture sacral wound. Wound Care consult. Suggested today yeast maceration with surrounding dermatitis. And deep tissue injury Wound culture in progress await growth to taper antibiotics. Blood culture x2 negative to date History of osteomyelitis 08/2020 Left above knee amputation Right chronic contracture of right lower extremity Type 2 diabetes insulin A1c 11.4 in 2022. Recheck A1c 5.7. Chronic low back pain Bed-bound status Hypertension DVT prophylaxis: Code status do not resuscitate Subjective Date/time seen: 07/06/24 13:20 Interval history: Patient reports soreness in his back, no chest pain or shortness of breath. Wound care evaluated the patient Review of Systems Review of Systems: All systems reviewed & are unremarkable except as noted in HPI and below Exam Narrative: GENERAL: no acute distress. Poor hygiene somnolent HEAD: Normocephalic, atraumatic. EYES: PERRLA and EOMI. NECK: Supple. CHEST: Clear to auscultation. No respiratory distress. HEART: Regular rate and rhythm. No murmur heard. Normal peripheral pulses. ABDOMEN: normoactive bowel sounds. Abdomen soft with mild tenderness over the left lower quadrant ventral hernia. Hernia not easily reduced. No overlying skin changes EXTREMITIES: left proximal thigh amputation, right knee chronic contracture SKIN: several stage II ulcerations to the sacrum extending near the scrotum with surrounding blanching erythema and warmth that extends superiorly up the back. No crepitus, no necrosis. NEURO: No focal deficits. Objective Data Vital Signs Vital Signs: Vital Signs - 24 hr 07/05/24 14:00 07/05/24 16:03 07/05/24 20:59 Temperature 96.2 F L 99.4 F Pulse Rate 75 75 69 Respiratory Rate 20 18 Blood Pressure 164/84 H 140/67 Pulse Oximetry 99 96 Oxygen Delivery 07/05/24 20:00 07/06/24 05:37 07/05/24 20:00 Temperature 99.1 F Pulse Rate 74 68 Respiratory Rate 18 Blood Pressure 176/88 H Pulse Oximetry 93 Oxygen Delivery Room Air 07/06/24 00:00 07/06/24 04:00 07/06/24 08:15 Temperature Pulse Rate 73 70 Respiratory Rate Blood Pressure Pulse Oximetry Oxygen Delivery Room Air 07/06/24 08:03 07/06/24 12:02 Temperature Pulse Rate 72 72 Respiratory Rate Blood Pressure Pulse Oximetry Oxygen Delivery Intake/Output Intake/Output: Intake & Output 07/03/24 07/04/24 07/05/24 07/06/24 23:59 23:59 23:59 23:59 Intake Total 1140 2660 690 Output Total 550 800 500 Balance 590 1860 190 Meds/Results Medications: Active Medications Generic Name Dose Route Start Last Admin Trade Name Freq PRN Reason Stop Dose Admin Acetaminophen 650 mg 07/04/24 18:58 Acetaminophen 325 Mg Tablet PO Q4H PRN Mild Pain (1-3) or Fever Hydrocodone Bitart/Acetaminophen 1 tab 07/04/24 18:58 07/05/24 14:08 Hydrocodone/Acetaminophen (*Crx) 5-325 Mg Tablet PO 1 tab Q4H PRN Administration Moderate Pain (4-6) Bisacodyl 5 mg 07/04/24 18:58 Bisacodyl 5 Mg Tablet Ec PO DAILY PRN Constipation Dextrose 12.5 gm 07/04/24 19:00 07/05/24 08:39 Dextrose 50% 25 Gm/50 Ml Syringe IV PUSH 12.5 gm PRN PRN Administration Hypoglycemia Protocol Glucagon 1 mg 07/04/24 19:00 Glucagon For Inj 1 Mg Vial IM PRN PRN Hypoglycemia Protocol Glucose 15 gm 07/04/24 19:00 Glucose Oral Gel 15 Gm Of Glucse In 37.5 Gm Tube PO PRN PRN Hypoglycemia Protocol Hydrochlorothiazide 12.5 mg 07/05/24 09:00 07/06/24 08:13 Hydrochlorothiazide 12.5 Mg Capsule PO 12.5 mg DAILY KHUSHI Administration Cefepime HCl 2 gm in 50 mls @ 100 mls/hr 07/04/24 20:00 07/06/24 08:15 Maxipime 2 Gm/Ns 50 Ml IVPB 100 mls/hr Q12H KHUSHI Administration Metronidazole 500 mg in 100 mls @ 100 mls/hr 07/04/24 22:00 07/06/24 05:15 Flagyl 500 Mg/Iso Soln 100 Ml IVPB 100 mls/hr Q8H KHUSHI Administration Dextrose 1,000 mls @ 100 mls/hr 07/04/24 19:00 Dextrose 5% 1,000 Ml IVPB PRN PRN Hypoglycemia Protocol Vancomycin HCl 1,000 mg in 250 mls @ 250 mls/hr 07/06/24 09:00 07/06/24 08:16 Vancomycin 1,000 Mg/Ns 250 Ml IVPB 250 mls/hr Q12H KHUSHI Administration Insulin Aspart 4 - 8 units 07/05/24 08:00 07/06/24 11:37 Insulin Aspart (*Bkc) 100 Units/Ml SUB-Q Not Given [facility] Protocol Insulin Aspart 5 units 07/05/24 12:00 07/06/24 12:02 Insulin Aspart (*Bkc) 100 Units/Ml SUB-Q 5 units TIDWM KHUSHI Administration Insulin Glargine 20 units 07/05/24 18:00 07/05/24 18:44 Insulin Glargine (*Bkc) 100 Units/Ml SUB-Q Not Given [facility] Losartan Potassium 50 mg 07/05/24 09:00 07/06/24 08:14 Losartan Potassium 50 Mg Tablet PO 50 mg DAILY KHUSHI Administration Morphine Sulfate 2 mg 07/04/24 18:58 Morphine Sulfate (*Crx) 2 Mg/Ml Inj IV PUSH Q4H PRN Pain Rated 7-10 Naloxone HCl 0.1 mg 07/04/24 18:58 Naloxone Hcl 0.4 Mg/Ml Vial IV PUSH Q2M PRN Opiate Reversal Ondansetron HCl 4 mg 07/04/24 18:58 Ondansetron Inj 4 Mg/2 Ml Vial IV PUSH Q6H PRN Nausea And Vomiting Pantoprazole Sodium 40 mg 07/04/24 21:00 07/06/24 08:17 Pantoprazole Sodium Iv 40 Mg Vial IV PUSH 40 mg Q12HR KHUSHI Administration Radiology Results: ITS Impressions Abdomen/Pelvis CT 07/04/24 12:21 IMPRESSION: 1. Chronic marked rectus abdominis diastases with large left lower quadrant ventral hernia containing nonobstructed loops of small bowel. 2. Focal wall thickening at the tip the cecum with 2.2 cm mass and a few smaller nodules in the immediately adjacent fat which is suspicious for primary colon cancer and ileocolic lymph node metastatic disease. Would recommend attempted colonoscopy for further evaluation although this may prove challenging given the anatomy of the colon. 3. More diffuse mild wall thickening at the rectum and distal sigmoid colon is more suspicious for a distal proctocolitis which could be infectious, inflammatory or less likely ischemic in etiology. 4. Incompletely visualized bilateral pleural effusions. 5. Cardiomegaly. 6. Small fat-containing left inguinal hernia. Labs Labs: Laboratory Results - last 24 hr 07/05/24 07/05/24 07/06/24 16:52 19:35 00:19 WBC RBC Hgb Hct MCV MCH MCHC RDW Plt Count MPV Immature Gran % (Auto) Neut % (Auto) Lymph % (Auto) [place] % (Auto) Eos % (Auto) Baso % (Auto) Lymph # (Auto) [place] # (Auto) Eos # (Auto) Baso # (Auto) Abs Immat Gran (auto) Absolute Neuts (auto) Absolute Nucleated RBC Nucleated RBC % Sodium Potassium Chloride Carbon Dioxide Anion Gap BUN Creatinine Estim Creat Clear Calc Estimated GFR Glucose POC Capillary Glucose 113 H 117 H Calcium Magnesium Total Bilirubin AST ALT Alkaline Phosphatase Total Protein Albumin Vancomycin Trough 26.5 H 07/06/24 07/06/24 07/06/24 06:39 07:15 11:17 WBC 11.0 H RBC 3.78 L Hgb 9.3 L Hct 29.7 L MCV 78.6 L MCH 24.6 L MCHC 31.3 L RDW 18.6 H Plt Count 405 H MPV 10.8 H Immature Gran % (Auto) 0.3 Neut % (Auto) 73.7 H Lymph % (Auto) 9.1 L [place] % (Auto) 6.9 Eos % (Auto) 8.6 H Baso % (Auto) 1.4 H Lymph # (Auto) 1.00 [place] # (Auto) 0.8 H Eos # (Auto) 0.9 H Baso # (Auto) 0.2 H Abs Immat Gran (auto) 0.03 Absolute Neuts (auto) 8.1 H Absolute Nucleated RBC 0.000 Nucleated RBC % 0.0 Sodium 134 L Potassium 3.3 L Chloride 101 Carbon Dioxide 27 Anion Gap 6 BUN 12 Creatinine 0.70 Estim Creat Clear Calc 105 Estimated GFR > 60 Glucose 97 POC Capillary Glucose 95 139 H Calcium 7.5 L Magnesium 1.8 Total Bilirubin 0.5 AST 19 ALT 9 Alkaline Phosphatase 80 Total Protein 6.0 L Albumin 2.8 L Vancomycin Trough
[2024-07-06 16:29] LABS: Glucose Point of Care 113 mg/dl (65-105)
[2024-07-06 19:56] LABS: Glucose Point of Care 124 mg/dl (65-105)
[2024-07-07] VITALS (9 sets, daily range): BP systolic 138–155; BP diastolic 67–77; PULSE 67–81; RESP 16–22; TEMP 36.1–36.9; O2SAT 97–98
[2024-07-07] MEDS: metroNIDAZOLE 500 MG/ISO 100ML 500 MG/100 ML BAG 100 MG IVPB (05:37)
[2024-07-07 07:58] LABS: Glucose Point of Care 130 mg/dl (65-105)
[2024-07-07 07:59] LABS: Alanine Aminotransferase 7 U/L (6-50); Albumin Level 2.6 g/dL (3.5-5.1); Alkaline Phosphatase 77 U/L (38-126); Anion Gap 6 mmol/L (4-12); Aspartate Amino Transferase 14 U/L (17-59); Bilirubin,Total 0.6 mg/dL (0.2-1.3); Blood Urea Nitrogen 11 mg/dL (9-20); Calcium 7.6 mg/dL (8.4-10.2); Carbon Dioxide 28 mmol/L (22-30); Chloride 100 mmol/L (98-107); Estimated CRCL calculation 105 ml/min; Estimated Glomerular Filt Rate > 60; Glucose 114 mg/dL (65-110); Magnesium 1.8 mg/dL (1.6-2.3); Potassium 3.5 mmol/L (3.4-5.0); Sodium 134 mmol/L (137-145)
[2024-07-07] MEDS: PANTOPRAZOLE SODIUM IV 40 MG VIAL IV PUSH ×2 (08:06→21:50)
[2024-07-07] MEDS: CEFEPIME 2 GM/NS 50 ML 2 GM/50 ML BAG IVPB (08:07)
[2024-07-07] MEDS: LOSARTAN POTASSIUM 50 MG TABLET PO (08:07)
[2024-07-07] MEDS: hydroCHLOROthiazide 12.5 MG CAPSULE PO (08:07)
[2024-07-07 08:34] LABS: Basophils Absolute Auto 0.2 K/mm3 (0.0-0.1); Basophils Percent Auto 1.4 % (0.2-1.2); Eosinophils Absolute Auto 0.8 K/mm3 (0-0.3); Eosinophils Percent Auto 7.3 % (0-4.4); Hematocrit 29.5 % (42.0-52.0); Hemoglobin 9.3 g/dL (14.0-18.0); Immature Granulocyte Absolute 0.04 K/mm3 (0.00-0.031); Immature Granulocyte Percent A 0.4 % (0-0.5); Lymphocytes Absolute Auto 1.11 K/mm3 (0.9-3.2); Lymphocytes Percent Auto 10.2 % (18.3-44.2); Mean Corpuscular HGB Conc 31.5 g/dl (32-36); Mean Corpuscular Hemoglobin 24.9 pg (26-34); Mean Corpuscular Volume 79.1 fl (80-100); Mean Platelet Volume 10.9 fl (7.4-10.4); Monocytes Absolute Auto 0.7 K/mm3 (0.1-0.6); Monocytes Percent Auto 6.7 % (2.6-8.5); Neutrophils Absolute Auto 8.1 K/mm3 (1.3-6.7); Platelet Count Result 426 k/mm3 (150-375); Red Blood Count 3.73 M/mm3 (4.6-6.20); Red Cell Distribution Width 18.9 % (11.5-14.5); White Blood Count 10.9 K/mm3 (4.5-10.0)
[2024-07-07] MEDS: VANCOMYCIN 1,000 MG/NS 250 ML 1,000 MG/250 ML BAG 250 MG IVPB (08:56)
[2024-07-07 11:22] LABS: Glucose Point of Care 180 mg/dl (65-105)
[2024-07-07] MEDS: INSULIN ASPART (*BKC) 100 UNITS/ML SUB-Q ×2 (11:28→16:46)
--- NOTE | 2024-07-07 14:31 | P.PNGI_ITS ---
Progress Note: A&P Assessment and Plan (1) Mass of colon: Code(s): K63.89 - Other specified diseases of intestine Status: Acute Assessment and Plan: he is still unsure about colonoscopy, if he changes his mind then will let me know (2) Lower GI bleed: Code(s): K92.2 - Gastrointestinal hemorrhage, unspecified Status: Acute (3) Microcytic anemia: Code(s): D50.9 - Iron deficiency anemia, unspecified Status: Acute Assessment and Plan: hgb low but stable 9-10 (4) Decubitus ulcer of sacral region, stage 2: Code(s): L89.152 - Pressure ulcer of sacral region, stage 2 Status: Acute (5) Ventral hernia: Qualifiers: Obstruction and gangrene presence: without obstruction or gangrene Qualified Code(s): K43.9 - Ventral hernia without obstruction or gangrene Code(s): K43.9 - Ventral hernia without obstruction or gangrene Status: Acute Subjective Date/time seen: 07/07/24 14:31 Interval history: he mentioned to primary that may consider colonoscopy however he would like to be sedated in his room before getting down to GI lab, now he is not convinced anymore Review of Systems Review of Systems: All systems reviewed & are unremarkable except as noted in HPI and below Exam Const: General: comfortable and no acute distress Other: , male, chronically ill-appearing HENMT: Face/Nose/Sinus: Normal nares present Eyes: General: appearance normal, both eyes and all related structures Sclera: sclerae normal Other: + blind in left eye Neck: Neck: supple Resp: Effort & Inspection: normal respiratory effort Auscultation: clear to auscultation bilaterally Cardio: Rate: regular rate GI: GI Palp: Yes Soft to palpation Auscultation: normal bowel sounds Other: nondistended, tender in the left lower quadrant, large ventral hernia. Urinary Catheter: Urinary Catheter: patent and draining Skin: General skin exam: normal color Neuro: Speech: normal speech Sensory Exam: normal sensation Other: Generalized weakness, A&O x4. 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 Psych: Mental Status: mental status grossly normal Affect: normal affect Other: Good insight and judgment. Objective Data Vital Signs Vital Signs: Vital Signs - 24 hr 07/06/24 16:02 07/06/24 20:45 07/06/24 20:00 Temperature 99.3 F Pulse Rate 74 72 Respiratory Rate 20 Blood Pressure 128/65 Pulse Oximetry 94 Oxygen Delivery Room Air 07/06/24 20:00 07/07/24 00:00 07/07/24 04:00 Temperature Pulse Rate 71 74 67 Respiratory Rate Blood Pressure Pulse Oximetry Oxygen Delivery 07/07/24 05:25 07/07/24 08:06 07/07/24 08:06 Temperature 98.4 F Pulse Rate 74 79 Respiratory Rate 16 Blood Pressure 155/77 H Pulse Oximetry 98 Oxygen Delivery Room Air 07/07/24 12:00 07/07/24 14:00 Temperature 97.0 F L Pulse Rate 77 75 Respiratory Rate 22 H Blood Pressure 142/67 H Pulse Oximetry 97 Oxygen Delivery Intake/Output Intake/Output: Intake & Output 07/04/24 07/05/24 07/06/24 07/07/24 23:59 23:59 23:59 23:59 Intake Total 1140 2660 1830 1100 Output Total 157 891 5088 750 Balance 590 1860 555 350 Meds/Results Medications: Active Medications Generic Name Dose Route Start Last Admin Trade Name Freq PRN Reason Stop Dose Admin Acetaminophen 650 mg 07/04/24 18:58 Acetaminophen 325 Mg Tablet PO Q4H PRN Mild Pain (1-3) or Fever Hydrocodone Bitart/Acetaminophen 1 tab 07/04/24 18:58 07/05/24 14:08 Hydrocodone/Acetaminophen (*Crx) 5-325 Mg Tablet PO 1 tab Q4H PRN Administration Moderate Pain (4-6) Bisacodyl 5 mg 07/04/24 18:58 Bisacodyl 5 Mg Tablet Ec PO DAILY PRN Constipation Dextrose 12.5 gm 07/06/24 13:27 Dextrose 50% 25 Gm/50 Ml Syringe IV PUSH PRN PRN Hypoglycemia Protocol Glucagon 1 mg 07/06/24 13:27 Glucagon For Inj 1 Mg Vial IM PRN PRN Hypoglycemia Protocol Glucose 15 gm 07/06/24 13:27 Glucose Oral Gel 15 Gm Of Glucse In 37.5 Gm Tube PO PRN PRN Hypoglycemia Protocol Hydrochlorothiazide 12.5 mg 07/05/24 09:00 07/07/24 08:07 Hydrochlorothiazide 12.5 Mg Capsule PO 12.5 mg DAILY KHUSHI Administration Vancomycin HCl 1,000 mg in 250 mls @ 250 mls/hr 07/06/24 09:00 10 09:56 Vancomycin 1,000 Mg/Ns 250 Ml IVPB Infused Q12H KHUSHI Infusion Dextrose 1,000 mls @ 100 mls/hr 07/06/24 13:27 Dextrose 5% 1,000 Ml IVPB PRN PRN Hypoglycemia Protocol Insulin Aspart 5 units 07/05/24 12:00 07/07/24 11:28 Insulin Aspart (*Bkc) 100 Units/Ml SUB-Q 5 units TIDWM KHUSHI Administration Insulin Aspart 2 - 5 units 07/06/24 17:00 07/07/24 11:29 Insulin Aspart (*Bkc) 100 Units/Ml SUB-Q Not Given TIDWM [facility] Protocol Insulin Glargine 20 units 07/05/24 18:00 07/05/24 18:44 Insulin Glargine (*Bkc) 100 Units/Ml SUB-Q Not Given QPM [facility] Losartan Potassium 50 mg 07/05/24 09:00 10 08:07 Losartan Potassium 50 Mg Tablet PO 50 mg DAILY KHUSHI Administration Morphine Sulfate 2 mg 07/04/24 18:58 Morphine Sulfate (*Crx) 2 Mg/Ml Inj IV PUSH Q4H PRN Pain Rated 7-10 Naloxone HCl 0.1 mg 07/04/24 18:58 Naloxone Hcl 0.4 Mg/Ml Vial IV PUSH Q2M PRN Opiate Reversal Ondansetron HCl 4 mg 07/04/24 18:58 Ondansetron Inj 4 Mg/2 Ml Vial IV PUSH Q6H PRN Nausea And Vomiting Pantoprazole Sodium 40 mg 07/04/24 21:00 07/07/24 08:06 Pantoprazole Sodium Iv 40 Mg Vial IV PUSH 40 mg Q12HR KHUSHI Administration Radiology Results: ITS Impressions Abdomen/Pelvis CT 07/04/24 12:21 IMPRESSION: 1. Chronic marked rectus abdominis diastases with large left lower quadrant ventral hernia containing nonobstructed loops of small bowel. 2. Focal wall thickening at the tip the cecum with 2.2 cm mass and a few smaller nodules in the immediately adjacent fat which is suspicious for primary colon cancer and ileocolic lymph node metastatic disease. Would recommend attempted colonoscopy for further evaluation although this may prove challenging given the anatomy of the colon. 3. More diffuse mild wall thickening at the rectum and distal sigmoid colon is more suspicious for a distal proctocolitis which could be infectious, inflammatory or less likely ischemic in etiology. 4. Incompletely visualized bilateral pleural effusions. 5. Cardiomegaly. 6. Small fat-containing left inguinal hernia. Labs Labs: Laboratory Results - last 24 hr 07/06/24 07/06/24 07/07/24 16:21 19:27 07:18 WBC 10.9 H RBC 3.73 L Hgb 9.3 L Hct 29.5 L MCV 79.1 L MCH 24.9 L MCHC 31.5 L RDW 18.9 H Plt Count 426 H MPV 10.9 H Immature Gran % (Auto) 0.4 Neut % (Auto) 74.0 H Lymph % (Auto) 10.2 L [place] % (Auto) 6.7 Eos % (Auto) 7.3 H Baso % (Auto) 1.4 H Lymph # (Auto) 1.11 [place] # (Auto) 0.7 H Eos # (Auto) 0.8 H Baso # (Auto) 0.2 H Abs Immat Gran (auto) 0.04 H Absolute Neuts (auto) 8.1 H Absolute Nucleated RBC 0.000 Nucleated RBC % 0.0 Sodium 134 L Potassium 3.5 Chloride 100 Carbon Dioxide 28 Anion Gap 6 BUN 11 Creatinine 0.70 Estim Creat Clear Calc 105 Estimated GFR > 60 Glucose 114 H POC Capillary Glucose 113 H 124 H Calcium 7.6 L Magnesium 1.8 Total Bilirubin 0.6 AST 14 L ALT 7 Alkaline Phosphatase 77 Total Protein 6.0 L Albumin 2.6 L 07/07/24 07/07/24 07:44 11:13 WBC RBC Hgb Hct MCV MCH MCHC RDW Plt Count MPV Immature Gran % (Auto) Neut % (Auto) Lymph % (Auto) [place] % (Auto) Eos % (Auto) Baso % (Auto) Lymph # (Auto) [place] # (Auto) Eos # (Auto) Baso # (Auto) Abs Immat Gran (auto) Absolute Neuts (auto) Absolute Nucleated RBC Nucleated RBC % Sodium Potassium Chloride Carbon Dioxide Anion Gap BUN Creatinine Estim Creat Clear Calc Estimated GFR Glucose POC Capillary Glucose 130 H 180 H Calcium Magnesium Total Bilirubin AST ALT Alkaline Phosphatase Total Protein Albumin
--- NOTE | 2024-07-07 14:57 | PM.IMPN ---
Progress Note: A&P Assessment and Plan (1) Cellulitis: Qualifiers: Site of cellulitis: buttock Qualified Code(s): L03.317 - Cellulitis of buttock Code(s): L03.90 - Cellulitis, unspecified Status: Acute (2) Decubitus ulcer of sacral region, stage 2: Code(s): L89.152 - Pressure ulcer of sacral region, stage 2 Status: Acute (3) Pressure ulcer of left buttock: Qualifiers: Pressure injury stage: unspecified pressure injury stage Qualified Code(s): L89.329 - Pressure ulcer of left buttock, unspecified stage Code(s): L89.329 - Pressure ulcer of left buttock, unspecified stage Status: Acute (4) Lower GI bleed: Code(s): K92.2 - Gastrointestinal hemorrhage, unspecified Status: Acute (5) Anemia: Qualifiers: Anemia type: unspecified type Qualified Code(s): D64.9 - Anemia, unspecified Code(s): D64.9 - Anemia, unspecified Status: Acute (6) Mass of colon: Code(s): K63.89 - Other specified diseases of intestine Status: Acute (7) Ventral hernia: Qualifiers: Obstruction and gangrene presence: without obstruction or gangrene Qualified Code(s): K43.9 - Ventral hernia without obstruction or gangrene Code(s): K43.9 - Ventral hernia without obstruction or gangrene Status: Acute (8) Type 2 diabetes mellitus without complications: Qualifiers: Diabetes mellitus terminal operations supervisor insulin use: without terminal operations supervisor use Qualified Code(s): E11.9 - Type 2 diabetes mellitus without complications Code(s): E11.9 - Type 2 diabetes mellitus without complications Status: Chronic (9) Essential hypertension: Code(s): I10 - Essential (primary) hypertension Status: Chronic Plan This is a 64-year-old presented via EMS from for is ulceration and in his bottom for the past couple of weeks. His stated that the ulcer started draining yellow purulent drainage and hence brought to the ED for evaluation. Is a bed-bound at home and stays in the hospital bed. He has chronic right lower extremity contracture chronic left lower quadrant ventral hernia. He also had some diarrhea a few days ago has now resolved. No fever nausea vomiting. In the ED he was hypertensive afebrile oxygen saturation was adequate. CBC with WBC of 11.1 hemoglobin of 10.3 came panel showed hypokalemia 3.3 hypocalcemia 7.7 CRP was 3.678 lactate was normal at 1.[address] abdomen pelvis showed chronic marked rectus abdominus diastasis with large left lower quadrant ventral hernia containing nonobstructed loops of small bowel. There is also focal wall thickening at the tip of cecum with 2.2 cm mass and a few smaller nodules in the immediate sent fat which is suspicious for primary colon cancer and ileocolic lymph node metastatic disease. More diffuse mild wall thickening of the rectum and distal sigmoid colon more suspicious for distal proctocolitis which could be infectious inflammatory less likely ischemic in etiology. Bilateral pleural effusions cardiomegaly and small fat containing left inguinal hernia. Anemia he was FOBT positive in the ER. Patient refuses to get colonoscopy or any further evaluation for this. He is however agreeable for 1 today. GI notified Patient has been started on vancomycin cefepime and Flagyl. Wound culture sacral wound. Wound Care consult. Suggested today yeast maceration with surrounding dermatitis. Also has deep tissue injury plus cellulitis. Erythema improving. Wound culture grew Staphylococcus aureus. Will taper down antibiotic to only vancomycin. Stop cefepime and Flagyl. Blood culture x2 negative to date Discussed frequent position change for the wound to heal. 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 Recheck A1c 5.7. Chronic low back pain Bed-bound status Hypertension DVT prophylaxis: Code status do not resuscitate Disposition: Await culture report and switched to oral antibiotics if feasible. DC plan to home with home health with support from his . Patient otherwise bed bound. Subjective Date/time seen: 07/07/24 14:57 Interval history: No overnight events. Soreness in the bottom is improved. No fever chills. Review of Systems Review of Systems: All systems reviewed & are unremarkable except as noted in HPI and below Exam Narrative: GENERAL: no acute distress. Poor hygiene somnolent HEAD: Normocephalic, atraumatic. EYES: PERRLA and EOMI. NECK: Supple. CHEST: Clear to auscultation. No respiratory distress. HEART: Regular rate and rhythm. No murmur heard. Normal peripheral pulses. ABDOMEN: normoactive bowel sounds. Abdomen soft, left lower quadrant ventral hernia. Hernia not easily reduced. Nontender, No overlying skin changes EXTREMITIES: left proximal thigh amputation, right knee chronic contracture SKIN: several stage II ulcerations to the sacrum extending near the scrotum with surrounding blanching erythema and warmth that extends superiorly up the back. No crepitus, no necrosis. NEURO: No focal deficits. Objective Data Vital Signs Vital Signs: Vital Signs - 24 hr 07/06/24 16:02 07/06/24 20:45 07/06/24 20:00 Temperature 99.3 F Pulse Rate 74 72 Respiratory Rate 20 Blood Pressure 128/65 Pulse Oximetry 94 Oxygen Delivery Room Air 07/06/24 20:00 07/07/24 00:00 07/07/24 04:00 Temperature Pulse Rate 71 74 67 Respiratory Rate Blood Pressure Pulse Oximetry Oxygen Delivery 07/07/24 05:25 07/07/24 08:06 07/07/24 08:06 Temperature 98.4 F Pulse Rate 74 79 Respiratory Rate 16 Blood Pressure 155/77 H Pulse Oximetry 98 Oxygen Delivery Room Air 07/07/24 12:00 07/07/24 14:00 Temperature 97.0 F L Pulse Rate 77 75 Respiratory Rate 22 H Blood Pressure 142/67 H Pulse Oximetry 97 Oxygen Delivery Intake/Output Intake/Output: Intake & Output 07/04/24 07/05/24 07/06/24 07/07/24 23:59 23:59 23:59 23:59 Intake Total 1140 2660 1830 1100 Output Total 984 167 9425 750 Balance 590 1860 555 350 Meds/Results Medications: Active Medications Generic Name Dose Route Start Last Admin Trade Name Freq PRN Reason Stop Dose Admin Acetaminophen 650 mg 07/04/24 18:58 Acetaminophen 325 Mg Tablet PO Q4H PRN Mild Pain (1-3) or Fever Hydrocodone Bitart/Acetaminophen 1 tab 07/04/24 18:58 07/05/24 14:08 Hydrocodone/Acetaminophen (*Crx) 5-325 Mg Tablet PO 1 tab Q4H PRN Administration Moderate Pain (4-6) Bisacodyl 5 mg 07/04/24 18:58 Bisacodyl 5 Mg Tablet Ec PO DAILY PRN Constipation Dextrose 12.5 gm 07/06/24 13:27 Dextrose 50% 25 Gm/50 Ml Syringe IV PUSH PRN PRN Hypoglycemia Protocol Glucagon 1 mg 07/06/24 13:27 Glucagon For Inj 1 Mg Vial IM PRN PRN Hypoglycemia Protocol Glucose 15 gm 07/06/24 13:27 Glucose Oral Gel 15 Gm Of Glucse In 37.5 Gm Tube PO PRN PRN Hypoglycemia Protocol Hydrochlorothiazide 12.5 mg 07/05/24 09:00 07/07/24 08:07 Hydrochlorothiazide 12.5 Mg Capsule PO 12.5 mg DAILY [facility]USHI Administration Vancomycin HCl 1,000 mg in 250 mls @ 250 mls/hr 07/06/24 09:00 07/07/24 09:56 Vancomycin 1,000 Mg/Ns 250 Ml IVPB Infused Q12H K[facility]USHI Infusion Dextrose 1,000 mls @ 100 mls/hr 07/06/24 13:27 Dextrose 5% 1,000 Ml IVPB PRN PRN Hypoglycemia Protocol Insulin Aspart 5 units 07/05/24 12:00 07/07/24 11:28 Insulin Aspart (*Bkc) 100 Units/Ml SUB-Q 5 units TIDWM K[facility]USHI Administration Insulin Aspart 2 - 5 units 07/06/24 17:00 07/07/24 11:29 Insulin Aspart (*Bkc) 100 Units/Ml SUB-Q Not Given TIDWM [facility] Protocol Insulin Glargine 20 units 07/05/24 18:00 07/05/24 18:44 Insulin Glargine (*Bkc) 100 Units/Ml SUB-Q Not Given QPM [facility] Losartan Potassium 50 mg 07/05/24 09:00 07/07/24 08:07 Losartan Potassium 50 Mg Tablet PO 50 mg DAILY [facility] Administration Morphine Sulfate 2 mg 07/04/24 18:58 Morphine Sulfate (*Crx) 2 Mg/Ml Inj IV PUSH Q4H PRN Pain Rated 7-10 Naloxone HCl 0.1 mg 07/04/24 18:58 Naloxone Hcl 0.4 Mg/Ml Vial IV PUSH Q2M PRN Opiate Reversal Ondansetron HCl 4 mg 07/04/24 18:58 Ondansetron Inj 4 Mg/2 Ml Vial IV PUSH Q6H PRN Nausea And Vomiting Pantoprazole Sodium 40 mg 07/04/24 21:00 07/07/24 08:06 Pantoprazole Sodium Iv 40 Mg Vial IV PUSH 40 mg Q12HR [facility]US[facility] Administration Radiology Results: ITS Impressions Abdomen/Pelvis CT 07/04/24 12:21 IMPRESSION: 1. Chronic marked rectus abdominis diastases with large left lower quadrant ventral hernia containing nonobstructed loops of small bowel. 2. Focal wall thickening at the tip the cecum with 2.2 cm mass and a few smaller nodules in the immediately adjacent fat which is suspicious for primary colon cancer and ileocolic lymph node metastatic disease. Would recommend attempted colonoscopy for further evaluation although this may prove challenging given the anatomy of the colon. 3. More diffuse mild wall thickening at the rectum and distal sigmoid colon is more suspicious for a distal proctocolitis which could be infectious, inflammatory or less likely ischemic in etiology. 4. Incompletely visualized bilateral pleural effusions. 5. Cardiomegaly. 6. Small fat-containing left inguinal hernia. Labs Labs: Laboratory Results - last 24 hr 07/06/24 07/06/24 07/07/24 16:21 19:27 07:18 WBC 10.9 H RBC 3.73 L Hgb 9.3 L Hct 29.5 L MCV 79.1 L MCH 24.9 L MCHC 31.5 L RDW 18.9 H Plt Count 426 H MPV 10.9 H Immature Gran % (Auto) 0.4 Neut % (Auto) 74.0 H Lymph % (Auto) 10.2 L [place] % (Auto) 6.7 Eos % (Auto) 7.3 H Baso % (Auto) 1.4 H Lymph # (Auto) 1.11 [place] # (Auto) 0.7 H Eos # (Auto) 0.8 H Baso # (Auto) 0.2 H Abs Immat Gran (auto) 0.04 H Absolute Neuts (auto) 8.1 H Absolute Nucleated RBC 0.000 Nucleated RBC % 0.0 Sodium 134 L Potassium 3.5 Chloride 100 Carbon Dioxide 28 Anion Gap 6 BUN 11 Creatinine 0.70 Estim Creat Clear Calc 105 Estimated GFR > 60 Glucose 114 H POC Capillary Glucose 113 H 124 H Calcium 7.6 L Magnesium 1.8 Total Bilirubin 0.6 AST 14 L ALT 7 Alkaline Phosphatase 77 Total Protein 6.0 L Albumin 2.6 L 07/07/24 07/07/24 07:44 11:13 WBC RBC Hgb Hct MCV MCH MCHC RDW Plt Count MPV Immature Gran % (Auto) Neut % (Auto) Lymph % (Auto) [place] % (Auto) Eos % (Auto) Baso % (Auto) Lymph # (Auto) [place] # (Auto) Eos # (Auto) Baso # (Auto) Abs Immat Gran (auto) Absolute Neuts (auto) Absolute Nucleated RBC Nucleated RBC % Sodium Potassium Chloride Carbon Dioxide Anion Gap BUN Creatinine Estim Creat Clear Calc Estimated GFR Glucose POC Capillary Glucose 130 H 180 H Calcium Magnesium Total Bilirubin AST ALT Alkaline Phosphatase Total Protein Albumin
[2024-07-07 16:36] LABS: Glucose Point of Care 166 mg/dl (65-105)
[2024-07-07 20:50] LABS: Vancomycin Trough 21.4 ug/mL (10.0-20.0)
[2024-07-07 21:27] LABS: Glucose Point of Care 140 mg/dl (65-105)
[2024-07-07] MEDS: VANCOMYCIN 750 MG/NS 250 ML 750 MG/250 ML BAG 250 MG IVPB (23:00)
[2024-07-08] VITALS (11 sets, daily range): BP systolic 144–186; BP diastolic 65–96; PULSE 71–80; RESP 14–18; TEMP 36.1–36.9; O2SAT 97
--- NOTE | 2024-07-08 05:23 | PC.NURSE ---
Spoke with Dr. Baer at this time r/t patient elevated BP of 186/96 HR 78. Instructed to give morning dose of Losartan at this time.
[2024-07-08] MEDS: LOSARTAN POTASSIUM 50 MG TABLET PO (05:32)
[2024-07-08 07:06] LABS: Basophils Absolute Auto 0.2 K/mm3 (0.0-0.1); Basophils Percent Auto 1.6 % (0.2-1.2); Eosinophils Absolute Auto 0.8 K/mm3 (0-0.3); Eosinophils Percent Auto 6.9 % (0-4.4); Hematocrit 30.4 % (42.0-52.0); Hemoglobin 9.5 g/dL (14.0-18.0); Immature Granulocyte Absolute 0.05 K/mm3 (0.00-0.031); Immature Granulocyte Percent A 0.5 % (0-0.5); Lymphocytes Absolute Auto 1.12 K/mm3 (0.9-3.2); Lymphocytes Percent Auto 10.3 % (18.3-44.2); Mean Corpuscular HGB Conc 31.3 g/dl (32-36); Mean Corpuscular Hemoglobin 24.4 pg (26-34); Mean Corpuscular Volume 77.9 fl (80-100); Mean Platelet Volume 10.8 fl (7.4-10.4); Monocytes Absolute Auto 0.7 K/mm3 (0.1-0.6); Monocytes Percent Auto 6.5 % (2.6-8.5); Neutrophils Absolute Auto 8.1 K/mm3 (1.3-6.7); Neutrophils Percent Auto 74.2 % (45.5-73.1); Platelet Count Result 457 k/mm3 (150-375); Red Cell Distribution Width 19.1 % (11.5-14.5); White Blood Count 10.9 K/mm3 (4.5-10.0)
[2024-07-08 07:34] LABS: Alanine Aminotransferase 8 U/L (6-50); Albumin Level 2.7 g/dL (3.5-5.1); Alkaline Phosphatase 82 U/L (38-126); Anion Gap 7 mmol/L (4-12); Aspartate Amino Transferase 15 U/L (17-59); Bilirubin,Total 0.6 mg/dL (0.2-1.3); Blood Urea Nitrogen 10 mg/dL (9-20); Calcium 7.8 mg/dL (8.4-10.2); Carbon Dioxide 26 mmol/L (22-30); Chloride 100 mmol/L (98-107); Estimated CRCL calculation 105 ml/min; Estimated Glomerular Filt Rate > 60; Glucose 114 mg/dL (65-110); Magnesium 1.9 mg/dL (1.6-2.3); Potassium 3.3 mmol/L (3.4-5.0); Sodium 133 mmol/L (137-145)
[2024-07-08 07:43] LABS: Glucose Point of Care 141 mg/dl (65-105)
[2024-07-08] MEDS: INSULIN ASPART (*BKC) 100 UNITS/ML SUB-Q (08:20)
[2024-07-08] MEDS: hydroCHLOROthiazide 12.5 MG CAPSULE PO (08:23)
[2024-07-08] MEDS: POTASSIUM CHLORIDE 20 MEQ ER TABLET 40 MEQ PO (08:23)
[2024-07-08] MEDS: PANTOPRAZOLE SODIUM IV 40 MG VIAL IV PUSH ×2 (08:23→20:36)
[2024-07-08 08:30] LABS: Carcinoembryonic Antigen 8.3 ng/mL (0.0-3.0)
[2024-07-08] MEDS: VANCOMYCIN 750 MG/NS 250 ML 750 MG/250 ML BAG 250 MG IVPB (11:13)
[2024-07-08 11:29] LABS: Glucose Point of Care 120 mg/dl (65-105)
[2024-07-08 11:42] LABS: Glucose Point of Care 113 mg/dl (65-105)
--- NOTE | 2024-07-08 15:47 | P.PNIM_ITS ---
Progress Note: A&P Assessment and Plan (1) Cellulitis: Qualifiers: Site of cellulitis: buttock Qualified Code(s): L03.317 - Cellulitis of buttock Code(s): L03.90 - Cellulitis, unspecified Status: Acute (2) Decubitus ulcer of sacral region, stage 2: Code(s): L89.152 - Pressure ulcer of sacral region, stage 2 Status: Acute (3) Pressure ulcer of left buttock: Qualifiers: Pressure injury stage: unspecified pressure injury stage Qualified Code(s): L89.329 - Pressure ulcer of left buttock, unspecified stage Code(s): L89.329 - Pressure ulcer of left buttock, unspecified stage Status: Acute (4) Lower GI bleed: Code(s): K92.2 - Gastrointestinal hemorrhage, unspecified Status: Acute (5) Anemia: Qualifiers: Anemia type: unspecified type Qualified Code(s): D64.9 - Anemia, unspecified Code(s): D64.9 - Anemia, unspecified Status: Acute (6) Mass of colon: Code(s): K63.89 - Other specified diseases of intestine Status: Acute (7) Ventral hernia: Qualifiers: Obstruction and gangrene presence: without obstruction or gangrene Qualified Code(s): K43.9 - Ventral hernia without obstruction or gangrene Code(s): K43.9 - Ventral hernia without obstruction or gangrene Status: Acute (8) Type 2 diabetes mellitus without complications: Qualifiers: Diabetes mellitus rodent exterminator insulin use: without long-term use Qualified Code(s): E11.9 - Type 2 diabetes mellitus without complications Code(s): E11.9 - Type 2 diabetes mellitus without complications Status: Chronic (9) Essential hypertension: Code(s): I10 - Essential (primary) hypertension Status: Chronic Plan HPI - This is a 64-year-old presented via EMS from for is ulceration and in his bottom for the past couple of weeks. His stated that the ulcer started draining yellow purulent drainage and hence brought to the ED for evaluation. He is bed-bound at home and stays in the hospital bed. He has chronic right lower extremity contracture and chronic left lower quadrant ventral hernia. He also had some diarrhea a few days ago has now resolved. No fever, nausea vomiting. ED - In the ED he was hypertensive, afebrile, oxygen saturation was adequate. CBC with WBC of 11.1 hemoglobin of 10.3. Hypokalemia 3.3 hypocalcemia 7.7 CRP was 3.6. Lactate was normal at 1.5. magnesium is normal. CT abdomen pelvis showed chronic marked rectus abdominus diastasis with large left lower quadrant ventral hernia containing nonobstructed loops of small bowel. There is also focal wall thickening at the tip of cecum with 2.2 cm mass and a few smaller nodules in the immediate sent fat which is suspicious for primary colon cancer and ileocolic lymph node metastatic disease. More diffuse mild wall thickening of the rectum and distal sigmoid colon more suspicious for distal proctocolitis which could be infectious inflammatory less likely ischemic in etiology. Bilateral pleural effusions cardiomegaly and small fat containing left inguinal hernia. Hospital Course - Anemia - he was FOBT positive in the ER. GI consulted but kaleb ent refused to get colonoscopy for the cecal mass or any further evaluation for this. Spoke with him and his today at bedside. His wanted him to have the colonoscopy but did not want him to have any form of treatment. Patient agrees with no treatment but he does not want the colonoscopy either. Explained to that it would not be beneficial to perform the procedure if there is no plan for treatment and would recommend comfort measures instead. Patient was started on vancomycin cefepime and Flagyl. Wound culture sacral wound growing heavy growth MRSA. Wound Care consulted. Suggested yeast with maceration with surrounding dermatitis. Also has deep tissue injury plus cellulitis. Antibiotic cahnged to vancomycin for wound. Add back flagyl for possible proctocolitis. Change to doxycycline. Discussed with PharmD ID. Blood culture x2 negative to date Discussed frequent position change for the wound to heal. History of osteomyelitis 08/2020 Left above knee amputation and Right chronic contracture of right lower extremity Type 2 diabetes insulin A1c 11.4 in 2022. Recheck A1c 5.7. Chronic low back pain Bed-bound status Hypertension DVT prophylaxis: Code status do not resuscitate Disp - Discussed options about comfort measures and the patient and wanted to talk with hospice. Informed later in the day that hospice has been arranged at home. Home tomorrow Subjective Date/time seen: 07/08/24 15:47 Interval history: 64yo male with PMH of left AKA r/t diabetes, HTN, HLD, and contracture of the RLE here with infected pressure ulcerations Assuming care. Chart reviewed. He feels tired today. No buttock pain today. No further diarrhea. No chest pain or shortness of breath. 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 He is also having visual changes in the other eye that may be visual hallucinations although this is unclear per family. They state his symptoms have been going on for past few weeks. Exam Narrative: AF 96.9 144/65 71 18 97% ra Gen - NARD Chest - clear bilaterally. nml RR CV - RRR S1/S2 Abd - Soft, NT. Mid-abd hernia with eczematous patch mid-abdomen - Shaffer secured. Urine clear. Ext - left AKA. Right knee flexion contraction and edematous Neuro - Alert and appropriate Psych - Nml mood and affect Skin - Warm and dry. sacral area not visualized Objective Data Vital Signs Vital Signs: Vital Signs - 24 hr 07/07/24 16:00 07/07/24 22:00 07/07/24 20:00 Temperature 98.4 F Pulse Rate 69 81 Respiratory Rate 18 Blood Pressure 138/67 Pulse Oximetry 98 Oxygen Delivery Room Air 07/07/24 20:00 07/08/24 00:00 07/08/24 04:00 Temperature Pulse Rate 74 73 75 Respiratory Rate Blood Pressure Pulse Oximetry Oxygen Delivery 07/08/24 06:00 07/08/24 06:58 07/08/24 08:20 Temperature 98.4 F Pulse Rate 78 75 Respiratory Rate 18 Blood Pressure 186/96 H 171/90 H Pulse Oximetry 97 Oxygen Delivery 07/08/24 08:20 07/08/24 12:00 07/08/24 14:00 Temperature 96.9 F L Pulse Rate 74 71 Respiratory Rate 18 Blood Pressure 144/65 H Pulse Oximetry 97 Oxygen Delivery Room Air Intake/Output Intake/Output: Intake & Output 07/05/24 07/06/24 07/07/24 07/08/24 23:59 23:59 23:59 23:59 Intake Total 2660 1830 1340 980 Output Total 800 1275 1400 1400 Balance 1860 883 -06 -194 Meds/Results Medications: Active Medications Generic Name Dose Route Start Last Admin Trade Name Freq PRN Reason Stop Dose Admin Acetaminophen 650 mg 07/04/24 18:58 Acetaminophen 325 Mg Tablet PO Q4H PRN Mild Pain (1-3) or Fever Hydrocodone Bitart/Acetaminophen 1 tab 07/04/24 18:58 07/05/24 14:08 Hydrocodone/Acetaminophen (*Crx) 5-325 Mg Tablet PO 1 tab Q4H PRN Administration Moderate Pain (4-6) Bisacodyl 5 mg 07/04/24 18:58 Bisacodyl 5 Mg Tablet Ec PO DAILY PRN Constipation Dextrose 12.5 gm 07/06/24 13:27 Dextrose 50% 25 Gm/50 Ml Syringe IV PUSH PRN PRN Hypoglycemia Protocol Doxycycline Hyclate 100 mg 07/08/24 21:00 Doxycycline Hyclate 100 Mg Tablet PO Q12HR [facility]US[facility] Glucagon 1 mg 07/06/24 13:27 Glucagon For Inj 1 Mg Vial IM PRN PRN Hypoglycemia Protocol Glucose 15 gm 07/06/24 13:27 Glucose Oral Gel 15 Gm Of Glucse In 37.5 Gm Tube PO PRN PRN Hypoglycemia Protocol Hydrochlorothiazide 12.5 mg 07/05/24 09:00 07/08/24 08:23 Hydrochlorothiazide 12.5 Mg Capsule PO 12.5 mg DAILY [facility] Administration Dextrose 1,000 mls @ 100 mls/hr 07/06/24 13:27 Dextrose 5% 1,000 Ml IVPB PRN PRN Hypoglycemia Protocol Insulin Aspart 5 units 07/05/24 12:00 07/08/24 11:37 Insulin Aspart (*Bkc) 100 Units/Ml SUB-Q Not Given TIDWM [facility] Insulin Aspart 2 - 5 units 07/06/24 17:00 07/08/24 11:37 Insulin Aspart (*Bkc) 100 Units/Ml SUB-Q Not Given TIDWM [facility] Protocol Insulin Glargine 20 units 07/05/24 18:00 07/05/24 18:44 Insulin Glargine (*Bkc) 100 Units/Ml SUB-Q Not Given QPM [facility] Losartan Potassium 50 mg 07/05/24 09:00 07/08/24 05:32 Losartan Potassium 50 Mg Tablet PO 50 mg DAILY [facility] Administration Metronidazole 500 mg 07/08/24 16:00 Metronidazole 500 Mg Tablet PO Q8HR [facility] Morphine Sulfate 2 mg 07/04/24 18:58 Morphine Sulfate (*Crx) 2 Mg/Ml Inj IV PUSH Q4H PRN Pain Rated 7-10 Naloxone HCl 0.1 mg 07/04/24 18:58 Naloxone Hcl 0.4 Mg/Ml Vial IV PUSH Q2M PRN Opiate Reversal Ondansetron HCl 4 mg 07/04/24 18:58 Ondansetron Inj 4 Mg/2 Ml Vial IV PUSH Q6H PRN Nausea And Vomiting Pantoprazole Sodium 40 mg 07/04/24 21:00 07/08/24 08:23 Pantoprazole Sodium Iv 40 Mg Vial IV PUSH 40 mg Q12HR [facility]USHI Administration Radiology Results: ITS Impressions Abdomen/Pelvis CT 07/04/24 12:21 IMPRESSION: 1. Chronic marked rectus abdominis diastases with large left lower quadrant ventral hernia containing nonobstructed loops of small bowel. 2. Focal wall thickening at the tip the cecum with 2.2 cm mass and a few smaller nodules in the immediately adjacent fat which is suspicious for primary colon cancer and ileocolic lymph node metastatic disease. Would recommend attempted colonoscopy for further evaluation although this may prove challenging given the anatomy of the colon. 3. More diffuse mild wall thickening at the rectum and distal sigmoid colon is more suspicious for a distal proctocolitis which could be infectious, inflammatory or less likely ischemic in etiology. 4. Incompletely visualized bilateral pleural effusions. 5. Cardiomegaly. 6. Small fat-containing left inguinal hernia. Labs Labs: Laboratory Results - last 24 hr 07/07/24 07/07/24 07/07/24 16:33 20:00 21:11 WBC RBC Hgb Hct MCV MCH MCHC RDW Plt Count MPV Immature Gran % (Auto) Neut % (Auto) Lymph % (Auto) [place] % (Auto) Eos % (Auto) Baso % (Auto) Lymph # (Auto) [place] # (Auto) Eos # (Auto) Baso # (Auto) Abs Immat Gran (auto) Absolute Neuts (auto) Absolute Nucleated RBC Nucleated RBC % Sodium Potassium Chloride Carbon Dioxide Anion Gap BUN Creatinine Estim Creat Clear Calc Estimated GFR Glucose POC Capillary Glucose 166 H 140 H Calcium Magnesium Total Bilirubin AST ALT Alkaline Phosphatase Total Protein Albumin Carcinoembryonic Ag Vancomycin Trough 21.4 H 07/08/24 07/08/24 07/08/24 06:40 06:43 07:35 WBC 10.9 H RBC 3.90 L Hgb 9.5 L Hct 30.4 L MCV 77.9 L MCH 24.4 L MCHC 31.3 L RDW 19.1 H Plt Count 457 H MPV 10.8 H Immature Gran % (Auto) 0.5 Neut % (Auto) 74.2 H Lymph % (Auto) 10.3 L [place] % (Auto) 6.5 Eos % (Auto) 6.9 H Baso % (Auto) 1.6 H Lymph # (Auto) 1.12 [place] # (Auto) 0.7 H Eos # (Auto) 0.8 H Baso # (Auto) 0.2 H Abs Immat Gran (auto) 0.05 H Absolute Neuts (auto) 8.1 H Absolute Nucleated RBC 0.000 Nucleated RBC % 0.0 Sodium 133 L Potassium 3.3 L Chloride 100 Carbon Dioxide 26 Anion Gap 7 BUN 10 Creatinine 0.70 Estim Creat Clear Calc 105 Estimated GFR > 60 Glucose 114 H POC Capillary Glucose 141 H Calcium 7.8 L Magnesium 1.9 Total Bilirubin 0.6 AST 15 L ALT 8 Alkaline Phosphatase 82 Total Protein 6.0 L Albumin 2.7 L Carcinoembryonic Ag 8.3 H Vancomycin Trough 07/08/24 07/08/24 11:23 11:35 WBC RBC Hgb Hct MCV MCH MCHC RDW Plt Count MPV Immature Gran % (Auto) Neut % (Auto) Lymph % (Auto) [place] % (Auto) Eos % (Auto) Baso % (Auto) Lymph # (Auto) [place] # (Auto) Eos # (Auto) Baso # (Auto) Abs Immat Gran (auto) Absolute Neuts (auto) Absolute Nucleated RBC Nucleated RBC % Sodium Potassium Chloride Carbon Dioxide Anion Gap BUN Creatinine Estim Creat Clear Calc Estimated GFR Glucose POC Capillary Glucose 120 H 113 H Calcium Magnesium Total Bilirubin AST ALT Alkaline Phosphatase Total Protein Albumin Carcinoembryonic Ag Vancomycin Trough
--- NOTE | 2024-07-08 15:56 | WPDGIPROGNO ---
Progress Note: A&P Assessment and Plan (1) Mass of colon: Code(s): K63.89 - Other specified diseases of intestine Status: Acute Assessment and Plan: he decided just comfort measures, does not want colonoscopy will sign off (2) Lower GI bleed: Code(s): K92.2 - Gastrointestinal hemorrhage, unspecified Status: Acute Assessment and Plan: stable (3) Microcytic anemia: Code(s): D50.9 - Iron deficiency anemia, unspecified Status: Acute Assessment and Plan: hgb low but stable 9-10 (4) Decubitus ulcer of sacral region, stage 2: Code(s): L89.152 - Pressure ulcer of sacral region, stage 2 Status: Acute (5) Ventral hernia: Qualifiers: Obstruction and gangrene presence: without obstruction or gangrene Qualified Code(s): K43.9 - Ventral hernia without obstruction or gangrene Code(s): K43.9 - Ventral hernia without obstruction or gangrene Status: Acute Subjective Date/time seen: 07/08/24 15:56 Interval history: no events, finally he decided against more invasive procedures Review of Systems Review of Systems: All systems reviewed & are unremarkable except as noted in HPI and below Exam Const: General: comfortable and no acute distress Other: , male, chronically ill-appearing HENMT: Face/Nose/Sinus: Normal nares present Eyes: General: appearance normal, both eyes and all related structures Sclera: sclerae normal Other: + blind in left eye Neck: Neck: supple Resp: Effort & Inspection: normal respiratory effort Auscultation: clear to auscultation bilaterally Cardio: Rate: regular rate GI: GI Palp: Yes Soft to palpation Auscultation: normal bowel sounds Other: nondistended, tender in the left lower quadrant, large ventral hernia. Urinary Catheter: Urinary Catheter: patent and draining Skin: General skin exam: normal color Neuro: Speech: normal speech Sensory Exam: normal sensation Other: Generalized weakness, A&O x4. 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 Psych: Mental Status: mental status grossly normal Affect: normal affect Other: Good insight and judgment. Objective Data Vital Signs Vital Signs: Vital Signs - 24 hr 07/07/24 16:00 07/07/24 22:00 07/07/24 20:00 Temperature 98.4 F Pulse Rate 69 81 Respiratory Rate 18 Blood Pressure 138/67 Pulse Oximetry 98 Oxygen Delivery Room Air 07/07/24 20:00 07/08/24 00:00 07/08/24 04:00 Temperature Pulse Rate 74 73 75 Respiratory Rate Blood Pressure Pulse Oximetry Oxygen Delivery 07/08/24 06:00 07/08/24 06:58 07/08/24 08:20 Temperature 98.4 F Pulse Rate 78 75 Respiratory Rate 18 Blood Pressure 186/96 H 171/90 H Pulse Oximetry 97 Oxygen Delivery 07/08/24 08:20 07/08/24 12:00 07/08/24 14:00 Temperature 96.9 F L Pulse Rate 74 71 Respiratory Rate 18 Blood Pressure 144/65 H Pulse Oximetry 97 Oxygen Delivery Room Air Intake/Output Intake/Output: Intake & Output 07/05/24 07/06/24 07/07/24 07/08/24 23:59 23:59 23:59 23:59 Intake Total 2660 1830 1340 980 Output Total 800 1275 1400 1400 Balance 1860 555 60 420 Meds/Results Medications: Active Medications Generic Name Dose Route Start Last Admin Trade Name Freq PRN Reason Stop Dose Admin Acetaminophen 650 mg 07/04/24 18:58 Acetaminophen 325 Mg Tablet PO Q4H PRN Mild Pain (1-3) or Fever Hydrocodone Bitart/Acetaminophen 1 tab 07/04/24 18:58 07/05/24 14:08 Hydrocodone/Acetaminophen (*Crx) 5-325 Mg Tablet PO 1 tab Q4H PRN Administration Moderate Pain (4-6) Bisacodyl 5 mg 07/04/24 18:58 Bisacodyl 5 Mg Tablet Ec PO DAILY PRN Constipation Dextrose 12.5 gm 07/06/24 13:27 Dextrose 50% 25 Gm/50 Ml Syringe IV PUSH PRN PRN Hypoglycemia Protocol Doxycycline Hyclate 100 mg 07/08/24 21:00 Doxycycline Hyclate 100 Mg Tablet PO Q12HR KHUSHI Glucagon 1 mg 07/06/24 13:27 Glucagon For Inj 1 Mg Vial IM PRN PRN Hypoglycemia Protocol Glucose 15 gm 07/06/24 13:27 Glucose Oral Gel 15 Gm Of Glucse In 37.5 Gm Tube PO PRN PRN Hypoglycemia Protocol Hydrochlorothiazide 12.5 mg 07/05/24 09:00 10/09/24 08:23 Hydrochlorothiazide 12.5 Mg Capsule PO 12.5 mg DAILY KHUSHI Administration Dextrose 1,000 mls @ 100 mls/hr 07/06/24 13:27 Dextrose 5% 1,000 Ml IVPB PRN PRN Hypoglycemia Protocol Insulin Aspart 5 units 07/05/24 12:00 07/08/24 11:37 Insulin Aspart (*Bkc) 100 Units/Ml SUB-Q Not Given TIDWM KHUSHI Insulin Aspart 2 - 5 units 07/06/24 17:00 07/08/24 11:37 Insulin Aspart (*Bkc) 100 Units/Ml SUB-Q Not Given TIDWM [facility] Protocol Insulin Glargine 20 units 07/05/24 18:00 07/05/24 18:44 Insulin Glargine (*Bkc) 100 Units/Ml SUB-Q Not Given QPM [facility] Losartan Potassium 50 mg 07/05/24 09:00 07/08/24 05:32 Losartan Potassium 50 Mg Tablet PO 50 mg DAILY KHUSHI Administration Metronidazole 500 mg 07/08/24 16:00 Metronidazole 500 Mg Tablet PO Q8HR [facility] Morphine Sulfate 2 mg 07/04/24 18:58 Morphine Sulfate (*Crx) 2 Mg/Ml Inj IV PUSH Q4H PRN Pain Rated 7-10 Naloxone HCl 0.1 mg 07/04/24 18:58 Naloxone Hcl 0.4 Mg/Ml Vial IV PUSH Q2M PRN Opiate Reversal Ondansetron HCl 4 mg 07/04/24 18:58 Ondansetron Inj 4 Mg/2 Ml Vial IV PUSH Q6H PRN Nausea And Vomiting Pantoprazole Sodium 40 mg 07/04/24 21:00 07/08/24 08:23 Pantoprazole Sodium Iv 40 Mg Vial IV PUSH 40 mg Q12HR KHUSHI Administration Radiology Results: ITS Impressions Abdomen/Pelvis CT 07/04/24 12:21 IMPRESSION: 1. Chronic marked rectus abdominis diastases with large left lower quadrant ventral hernia containing nonobstructed loops of small bowel. 2. Focal wall thickening at the tip the cecum with 2.2 cm mass and a few smaller nodules in the immediately adjacent fat which is suspicious for primary colon cancer and ileocolic lymph node metastatic disease. Would recommend attempted colonoscopy for further evaluation although this may prove challenging given the anatomy of the colon. 3. More diffuse mild wall thickening at the rectum and distal sigmoid colon is more suspicious for a distal proctocolitis which could be infectious, inflammatory or less likely ischemic in etiology. 4. Incompletely visualized bilateral pleural effusions. 5. Cardiomegaly. 6. Small fat-containing left inguinal hernia. Labs Labs: Laboratory Results - last 24 hr 07/07/24 07/07/24 07/07/24 16:33 20:00 21:11 WBC RBC Hgb Hct MCV MCH MCHC RDW Plt Count MPV Immature Gran % (Auto) Neut % (Auto) Lymph % (Auto) [place] % (Auto) Eos % (Auto) Baso % (Auto) Lymph # (Auto) [place] # (Auto) Eos # (Auto) Baso # (Auto) Abs Immat Gran (auto) Absolute Neuts (auto) Absolute Nucleated RBC Nucleated RBC % Sodium Potassium Chloride Carbon Dioxide Anion Gap BUN Creatinine Estim Creat Clear Calc Estimated GFR Glucose POC Capillary Glucose 166 H 140 H Calcium Magnesium Total Bilirubin AST ALT Alkaline Phosphatase Total Protein Albumin Carcinoembryonic Ag Vancomycin Trough 21.4 H 07/08/24 07/08/24 07/08/24 06:40 06:43 07:35 WBC 10.9 H RBC 3.90 L Hgb 9.5 L Hct 30.4 L MCV 77.9 L MCH 24.4 L MCHC 31.3 L RDW 19.1 H Plt Count 457 H MPV 10.8 H Immature Gran % (Auto) 0.5 Neut % (Auto) 74.2 H Lymph % (Auto) 10.3 L [place] % (Auto) 6.5 Eos % (Auto) 6.9 H Baso % (Auto) 1.6 H Lymph # (Auto) 1.12 [place] # (Auto) 0.7 H Eos # (Auto) 0.8 H Baso # (Auto) 0.2 H Abs Immat Gran (auto) 0.05 H Absolute Neuts (auto) 8.1 H Absolute Nucleated RBC 0.000 Nucleated RBC % 0.0 Sodium 133 L Potassium 3.3 L Chloride 100 Carbon Dioxide 26 Anion Gap 7 BUN 10 Creatinine 0.70 Estim Creat Clear Calc 105 Estimated GFR > 60 Glucose 114 H POC Capillary Glucose 141 H Calcium 7.8 L Magnesium 1.9 Total Bilirubin 0.6 AST 15 L ALT 8 Alkaline Phosphatase 82 Total Protein 6.0 L Albumin 2.7 L Carcinoembryonic Ag 8.3 H Vancomycin Trough 07/08/24 07/08/24 11:23 11:35 WBC RBC Hgb Hct MCV MCH MCHC RDW Plt Count MPV Immature Gran % (Auto) Neut % (Auto) Lymph % (Auto) [place] % (Auto) Eos % (Auto) Baso % (Auto) Lymph # (Auto) [place] # (Auto) Eos # (Auto) Baso # (Auto) Abs Immat Gran (auto) Absolute Neuts (auto) Absolute Nucleated RBC Nucleated RBC % Sodium Potassium Chloride Carbon Dioxide Anion Gap BUN Creatinine Estim Creat Clear Calc Estimated GFR Glucose POC Capillary Glucose 120 H 113 H Calcium Magnesium Total Bilirubin AST ALT Alkaline Phosphatase Total Protein Albumin Carcinoembryonic Ag Vancomycin Trough
[2024-07-08] MEDS: metroNIDAZOLE 500 MG TABLET PO ×2 (16:05→20:38)
[2024-07-08 16:53] LABS: Glucose Point of Care 157 mg/dl (65-105)
[2024-07-08] MEDS: DOXYCYCLINE HYCLATE 100 MG TABLET PO (20:38)
[2024-07-08 23:00] LABS: Glucose Point of Care 199 mg/dl (65-105)
[2024-07-09] VITALS: PULSE 74
[2024-07-09 04:00] VITALS: PULSE 73
[2024-07-09 06:00] VITALS: BP 156/87; PULSE 84; RESP 14; TEMP 36.3; O2SAT 95
[2024-07-09] MEDS: metroNIDAZOLE 500 MG TABLET PO ×2 (06:20→12:33)
[2024-07-09 07:51] LABS: Glucose Point of Care 154 mg/dl (65-105)
[2024-07-09 10:00] VITALS: PULSE 75
[2024-07-09] MEDS: PANTOPRAZOLE SODIUM IV 40 MG VIAL IV PUSH (10:27)
[2024-07-09] MEDS: hydroCHLOROthiazide 12.5 MG CAPSULE PO (10:27)
[2024-07-09] MEDS: DOXYCYCLINE HYCLATE 100 MG TABLET PO (10:27)
[2024-07-09] MEDS: LOSARTAN POTASSIUM 50 MG TABLET PO (10:27)
[2024-07-09 11:57] LABS: Glucose Point of Care 156 mg/dl (65-105)
[2024-07-09 14:00] VITALS: BP 145/67; PULSE 64; RESP 18; TEMP 36.2; O2SAT 96
--- NOTE | 2024-07-09 14:59 | PM.DS ---
DS: Admitting Diagnosis Discharge Date 07/09/24 Admitting Diagnosis Wound Infection DS: Discharge Diagnosis Discharge Diagnosis (1) Cellulitis: Qualifiers: Site of cellulitis: buttock Qualified Code(s): L03.317 - Cellulitis of buttock Code(s): L03.90 - Cellulitis, unspecified Status: Acute (2) Decubitus ulcer of sacral region, stage 2: Code(s): L89.152 - Pressure ulcer of sacral region, stage 2 Status: Acute (3) Pressure ulcer of left buttock: Qualifiers: Pressure injury stage: unspecified pressure injury stage Qualified Code(s): L89.329 - Pressure ulcer of left buttock, unspecified stage Code(s): L89.329 - Pressure ulcer of left buttock, unspecified stage Status: Acute (4) Lower GI bleed: Code(s): K92.2 - Gastrointestinal hemorrhage, unspecified Status: Acute (5) Anemia: Qualifiers: Anemia type: unspecified type Qualified Code(s): D64.9 - Anemia, unspecified Code(s): D64.9 - Anemia, unspecified Status: Acute (6) Mass of colon: Code(s): K63.89 - Other specified diseases of intestine Status: Acute (7) Ventral hernia: Qualifiers: Obstruction and gangrene presence: without obstruction or gangrene Qualified Code(s): K43.9 - Ventral hernia without obstruction or gangrene Code(s): K43.9 - Ventral hernia without obstruction or gangrene Status: Acute (8) Type 2 diabetes mellitus without complications: 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 Please see H&P for details. Hospital Course: In the ED the patient was hypertensive, afebrile, oxygen saturation was adequate. CBC with WBC of 11.1K, Hgb 10.3. Hypokalemia 3.3 with hypocalcemia 7.7 and CRP was 3.6. Lactate was normal at 1.5. Magnesium is normal. CT abdomen pelvis showed chronic marked rectus abdominus diastasis with large left lower quadrant ventral hernia containing nonobstructed loops of small bowel. There is also focal wall thickening at the tip of cecum with 2.2 cm mass and a few smaller nodules in the immediate adjacent fat which is suspicious for primary colon cancer and ileocolic lymph node metastatic disease. More diffuse mild wall thickening of the rectum and distal sigmoid colon more suspicious for distal proctocolitis which could be infectious, inflammatory but less likely ischemic in etiology. Bilateral pleural effusions, cardiomegaly and small fat containing left inguinal hernia. His FOBT was positive in the ER. GI consulted but patient refused to get colonoscopy for the cecal mass or any further evaluation for this. Patient did not want any evaluation or treatment for the colon mass. CEA 8.3. Patient was started on vancomycin, cefepime and Flagyl. Wound culture sacral wound growing heavy growth MRSA. Wound Care consulted. Suggested yeast with maceration with surrounding dermatitis. Also has deep tissue injury plus cellulitis. Antibiotic changed to vancomycin for wound. Added back flagyl for possible proctocolitis. Changed Vanco to doxycycline per PharmD ID. Blood culture x2 negative to date. Discussed options about comfort measures and the patient and wanted to talk with hospice. Informed that hospice has been arranged at home. Patient was able to be discharged home with hospice are on 07/09/24 Status at Discharge Cognitive/behavioral status at discharge: stable Time Spent with Patient Time attestation: Total time spent providing and/or coordinating discharge services: 39 minutes Time spent: Greater than 30 minutes Exam Narrative: AF 97.4 156/87 75 14 95% ra Gen - NARD Chest - clear aneraiorlly. CV - RRR S1/S2 Abd - Soft, NT. Ext - left AKA. Right knee flexion contraction and edematous Psych - Nml mood and affect Skin - Warm and dry. sacral area not visualized DS: Data Data Completed and Pending Labs on day of discharge: Labs from last 24 hours 07/09/24 07/09/24 07/08/24 11:50 07:41 22:55 POC Capillary Glucose 156 H 154 H 199 H 07/08/24 16:37 POC Capillary Glucose 157 H Preliminary micro results at discharge 07/04/24 10:30 Blood Culture - Preliminary Blood 07/04/24 10:30 Blood Culture - Preliminary Blood Discharge Plan Discharge Attending physician on discharge: Colton Lee Discharging Clinician: Colton Lee Anticipated Discharge Date/Time: 07/09/24 15:06 Patient Disposition: Hospice - Home Activity: as tolerated Diet: regular Discharge Instructions: Please complete your antibiotic course even if you are starting to feel well. Take precautions to avoid falls. Hospice to follow at home. Thank you for using [facility] for your health care needs. Stand Alone Forms: General Discharge Information Follow-up/Referrals: Dany Carreno MD [Primary Care Provider] - Call for Appointment Discharge Medications: New doxycycline hyclate 100 mg Tablet 100 mg PO Q12HR Qty: 4 0RF metronidazole 500 mg Tablet 500 mg PO Q8HR Qty: 7 0RF Continued (DME) Advanced Gluc Meter Test Strip Strip See Rx Instructions .Route Qty: 50 1RF Rx Instructions: As directed (DME) FreeStyle [place] 2 [place] Misc See Rx Instructions .Route Qty: 1 0RF Rx Instructions: As directed (DME) pen needle, diabetic [Sure-Fine Pen [employer]] 31 gauge x 3/16 needle See Rx Instructions .ROUTE .MEDSUPPLY Qty: 400 2RF Rx Instructions: As directed to use with insulin pen 4 times a day losartan-hydrochlorothiazide 50-12.5 mg tablet 1 tablet PO DAILY Qty: 90 0RF Rx Instructions: due for an appointment last refill until seen. Changed insulin glargine-yfgn [Semglee(insulin glarg-yfgn)Pen] 100 unit/mL (3 mL) insulin pen 10 unit subcut HS Qty: 15 0RF Rx Instructions: LAST REFILL UNTIL SEEN Held insulin aspart U-100 [Novolog FlexPen U-100 Insulin] 100 unit/mL (3 mL) insulin pen 7 unit subcut TID Qty: 15 0RF Rx Instructions: LAST REFILL UNTIL SEEN Date of admission: 07/07/24 14:52 Primary Care Provider: Dany Carreno Admitting Provider: Alex Maldonado Attending physician on admission: Alex Maldonado Condition: Stable Hospitalist MIPS Heart Failure (Exclusion) Patient has history of Heart Transplant or Left Ventricular Assistive Device?: No IF YES, STOP HERE Heart Failure (Qualifier) Patient has current or prior documentation of LVEF less than or equal to 40%, or mod/servere depressed LVSF?: No IF NO, STOP HERE
== END 2024-07-09 18:05 | disposition hospice, home (50) | DRG 603 ==
LOC: ANHED 14:15 → ANH3MEDSUR 15:09
PROVIDERS: Student in an Organized Health Care Education/Training Program; Admitting Provider Internal Medicine; Emergency Provider Physician Assistant; PCP Family Medicine; Visit Provider Internal Medicine
DX: L03.317 Cellulitis of buttock (principal); K92.2 Gastrointestinal hemorrhage, unspecified; L89.152 Pressure ulcer of sacral region, stage 2; B95.62 Methicillin resistant Staphylococcus aureus infection as the cause of diseases classified elsewhere; M24.561 Contracture, right knee; D50.9 Iron deficiency anemia, unspecified; D64.9 Anemia, unspecified; E11.65 Type 2 diabetes mellitus with hyperglycemia; E78.5 Hyperlipidemia, unspecified; H54.7 Unspecified visual loss; I10 Essential (primary) hypertension; K43.9 Ventral hernia without obstruction or gangrene; K63.89 Other specified diseases of intestine; Z66 Do not resuscitate; Z89.612 Acquired absence of left leg above knee; Z89.431 Acquired absence of right foot; Z79.4 Long term (current) use of insulin; Z74.01 Bed confinement status
CPT/HCPCS: 36415; 74177; 80053; 80202; 81001; 82378; 82607; 82728; 82746; 82948; 83036; 83540; 83550; 83605; 83735; 84443; 85014; 85018; 85025; 85652; 86140; 87040; 87070; 87181; 87205; 96365; 96366; 96367; 96375; 99285; A9270; G0378; J0692; J1815; J1836; J2470; J3370; Q9967